=== PATIENT | male | born 1950 | race Caucasian/White ===

== ENCOUNTER 2016-10-21 09:38 | Emergency (ER) | payer OTHER ==
[~2016-10-21 09:38] MED LIST: ASPI81TA2 PO; GLU500 PO; [UNRECOGNIZED DRUG - REMARK]
--- NOTE | 2016-10-21 09:44 | ED.REPORT ---
HPI-General Illness Date of Service Oct 21, 2016 ED Provider: The patient is a 66 year old male with history of diabetes mellitus, hypertension, hyperlipidemia, neuropathy, and chronic pain, who was brought to the emergency department by EMS from [facility]. The patient has bee more forgetful and weaker than normal. The patient complains of difficulty breathing and increased fatigue. His breathing has improved over the last few hours. He continually states that his breathing issues may be related to a denture cream he has been using. He denies dysuria, hematuria, urinary frequency/urgency changes, abdominal pain, chest pain, bloody/tarry stools or rash. The history is somewhat difficult to obtain. Nursing Notes Stated Complaint: WEAKNESS Nursing Notes Reviewed: Yes Allergies: Coded Allergies: No Known Allergies (Verified Allergy, Unknown, 10/21/16) Scheduled Metformin-Expunged Drug, Do Not Renew! (Metformin-Expunged Drug, Do Not Renew!) 500 Mg Tablet 500 MG PO BID TAKE WITH EVENING MEAL Miscellaneous Medications (["Many Meds"]) Aspirin-Expunged Drug, Do Not Renew! (Aspirin-Expunged Drug, Do Not Renew!) 81 Mg Tab 81 MG PO General Time Seen by MD: 09:44 Chief Complaint Weakness Hx Obtained From: Patient (limited), EMS Arrived By: Ambulance Sudden in Onset?: No Onset Occurred: Onset unknown Symptom Duration: Duration unknown Severity: Current: No pain currently Severity: Maximum: No pain Recent Healthcare: No recent hospitalization Similar Sx Previous: No Past Medical History Past Medical History 1. Lumbar spine problems. 2. Carpal tunnel problems. 3. Diabetes. 4. Obesity. 5. Hypertension. 6. Hyperlipidemia. 7. Neuropathy. 8. Chronic back pain. 9. Hx of osteomyelitis Past Surgical History 1. Lumbar spine surgery. 2. Carpal tunnel surgery. 3. LLE amputation Smoking History Unknown if Ever Smoker Social History Lives at [facility] Other Social History: Local resident Review of Systems Full Review of Systems Constitutional: Reports: Fatigue, Weakness - generalized Respiratory: Reports: Shortness of breath GI: Denies: Abdominal pain, Bloody/tarry stool, Melena, Nausea Male: Denies Dysuria, Denies Hematuria, Denies Urinary frequency, Denies Urinary urgency, Denies Urination decreased, Denies Urination increased Skin: Denies Rash Neurologic: Reports: Confusion, Weakness Complete sys rev & neg: except as marked. Physical Exam Vital Signs Vital Signs Date Time Temp Pulse Resp B/P Pulse Ox O2 Delivery O2 Flow Rate FiO2 10/21/16 11:44 16 146/67 98 10/21/16 09:52 36.8 63 20 133/78 98 Room Air Initial VS: Reviewed Head / Eyes: Atraumatic, Normocephalic, PERRL Neck: Supple, Non-tender, Full range of motion Abdomen / GI: Soft, Non-tender, No guarding, No rebound, No distention Extremities: Vascular intact, Neuro intact, No swelling, No tenderness Skin: Warm, Dry, No cyanosis Psychiatric: Mood/affect normal, Behavior normal, Normal thought content General/Constitutional: Awake, Alert, No acute distress, Cooperative ENT: Airway patent Mouth: Positive: Mucous membranes dry Absent dentition Respiratory / Chest: Atraumatic, Breath sounds NL, Breath sounds = bilat, No respiratory distress, No rales, No rhonchi, No wheezing, No retractions, No stridor, No chest tenderness, No chest wall deformity Cardiovascular: Heart rate NL, Regular rhythm, Heart sounds NL, No gallop, No murmurs, No rubs, Cap refill not delayed, Peripheral circulation NL 1+ DP pulses Neurologic: Oriented X3, Speech NL, No motor deficits, No sensory deficits, CN II - XII intact, Cerebellar NL, Memory NL Interpretation & Diagnostics Lab Results Interpretation Result Diagram: 10/21/16 1023 10/21/16 1023 Test 10/21/16 10:23 10/21/16 10:55 White Blood Count 8.1th/mm3 (3.8-10.1) Red Blood Count 4.73mil/mm3 (4.40-5.80) Hemoglobin 14.1g/dL (13.8-17.2) Hematocrit 41.1% (41.0-50.0) Mean Corpuscular Volume 86.9fL (81-100) Mean Corpuscular Hemoglobin 29.8pg (27.0-35.0) Mean Corpuscular Hemoglobin Concent 34.3% (32.0-37.0) Red Cell Distribution Width 12.6% (12.3-15.4) Platelet Count 170bil/L (150-400) Neutrophils (%) (Auto) 68.6% (40-74) Lymphocytes (%) (Auto) 21.5% (14-46) Monocytes (%) (Auto) 6.6% (4-12) Eosinophils (%) (Auto) 3.0% (0-5) Basophils (%) (Auto) 0.2% (0-3) Sodium Level 133mEq/L (134-144) Potassium Level 4.7mEq/L (3.5-5.2) Chloride Level 93mEq/L (97-108) Carbon Dioxide Level 29mmol/L (18-29) Blood Urea Nitrogen 15mg/dL (8-27) Creatinine 0.90mg/dL (0.76-1.27) Estimat Glomerular Filtration Rate 90mL/min (>59) Glucose Level 273mg/dL (60-99) Lactic Acid Level 1.1mmol/L (0.4-2.0) Calcium Level 8.7mg/dL (8.5-10.1) Magnesium Level 1.7mg/dL (1.6-2.6) Total Bilirubin 0.7mg/dL (0.0-1.2) Aspartate Amino Transf (AST/SGOT) 15U/L (0-50) Alanine Aminotransferase (ALT/SGPT) 13U/L (0-44) Alkaline Phosphatase 71U/L (25-160) Troponin T 0.010ug/L (0.0-0.011) Pro-B-Type Natriuretic Peptide 149.9pg/mL (0-376) Total Protein 7.0g/dL (6.4-8.4) Albumin 3.9g/dL (3.4-5.0) Urine Color Yellow (YELLOW) Urine Appearance Hazy (CLEAR,HAZY) Urine pH 7.0 (5.0-8.0) Urine Specific [place] 1.015 (1.003-1.035) Urine Protein Negativemg/dL (NEG,TRACE) Urine Glucose (UA) 1000mg/dL (NEGATIVE) Urine Ketones Negativemg/dL (NEGATIVE) Urine Occult Blood Negative (NEGATIVE) Urine Nitrite Negative (NEGATIVE) Urine Bilirubin Negative (NEGATIVE) Urine Urobilinogen 0.2mg/dL (NORMAL) Urine Leukocyte Esterase Negative (NEGATIVE) Urine RBC 0-2/hpf (0-2) Urine WBC 0-5/hpf (0-5) Urine Epithelial Cells Occ/hpf (NONE-MOD) Urine Crystals None seen (NONE SEEN) Urine Bacteria Few/hpf (NONE-FEW) Urine Hyaline Casts None/lpf (NONE) Urine Granular Casts None seen (NONE SEEN) Urine Waxy Casts None seen (NONE SEEN) Urine Red Blood Cell Casts None seen (NONE SEEN) Urine White Blood Cell Casts None seen (NONE SEEN) Urine Mucus None seen (None Seen) Urine Trichomonas None seen (NONE SEEN) Urine Yeast None (NONE SEEN) Urinalysis Comment None Urine Culture Reflexed Not indicated ECG Interpretation ECG Interpretation: Sinus rhythm No acute ischemic changes Time: 11:20 Interpreted by: ED physician X-Ray Chest Interpretation Chest Xray Interpretation: IMPRESSION: Normal for age, except for reduced inspiratory volume Dictated by: Greg Pringle M.D. on 10/21/2016 at 11:19 Interpretation / Wet Read by: Interpret - Radiologist Re-Eval/Medical Decision Med Decision/Clinical Course Overall patient presents with this vague sense of not remembering to bring knees. This is of unclear etiology, it does not fit a clinical picture of pulmonary embolism, there is no unilateral leg swelling no vital sign instability, secondary laboratory signs like elevated troponin or proBNP. While this is not fully excluded pulmonary embolism, his symptoms do not seem to represent that. Additionally no brain imaging is obtained as he has a normal basic neuro exam and no focal signs or symptoms that would point to intracranial pathology. There is no obvious source of infection. Patient has returned to a more normal baseline, according to him. IT seems reasonable to send this patient back to the monitored care setting from which he came. Return and follow-up precautions are given. Source of Hx: Old records, EMS Time of Eval: 11:30 Re-Evaluation/Progress Note: Rechecked the patient. He is feeling better and would like to go home. All questions were addressed. Counseled Regarding: Diagnosis, Lab results, Need for follow-up, When/why to return to ED Discharge & Departure Primary Impression: Dyspnea Dyspnea type: unspecified Qualified Code: R06.00 - Dyspnea, unspecified Disposition: Home Discharge Condition All VS Reviewed: Yes Condition: Stable Additional Instructions: Thank you for seeking care at the emergency department. There is no obvious life threatening cause for your symptoms can be found today. Followup with your regular doctor in a few days for re-evaluation. Return to the emergency department for any new or concerning symptoms. Referrals: Amrik Greenfield MD (PCP) Scribe Attestation Portions of this note were transcribed by Soraya Colmenares. I, Dr. Palm personally performed the history, physical exam and medical decision-making; I reviewed and confirmed the accuracy of the information in the transcribed note. Signed by: Minnie Garces, 10/21/2016 and 1140. copies to: Amrik Greenfield MD, Timothy S DO Oct 21, 2016 09:44 Soraya Colmenares Oct 21, 2016 09:52
[2016-10-21] MEDS ORDERED: 0.9% Sodium Chloride 1,000 ML IV ONE (09:51)
[2016-10-21 09:52] VITALS: BP 133/78; PULSE 63; RESP 20; O2SAT 98
[2016-10-21 10:33] LABS: BASOPHILS % (AUTO) 0.2 % (0-3); MONOCYTES % (AUTO) 6.6 % (4-12); Mean Corpuscular Hemoglobin 29.8 pg (27.0-35.0); Mean Corpuscular Volume 86.9 fL (81-100); NEUTROPHILS % (AUTO) 68.6 % (40-74); Platelet Count 170 bil/L (150-400)
[2016-10-21 10:55] LABS: TROPONIN T 0.01 ug/L (0.0-0.011)
[2016-10-21 11:06] LABS: Magnesium 1.7 mg/dL (1.6-2.6)
[2016-10-21 11:13] LABS: APPEARANCE,URINE HAZY (CLEAR,HAZY); COLOR,URINE YELLOW (YELLOW); OCCULT BLOOD,URINE NEGATIVE (NEGATIVE); UROBILINOGEN,URINE 0.2 mg/dL (NORMAL)
--- NOTE | 2016-10-21 11:21 | DRSVH ---
PROCEDURE: X-RAY CHEST ONE VIEW, PORTABLE ([id number]) INDICATIONS: dyspnea TECHNIQUE: One view of the chest was acquired. COMPARISON: [facility], , CHEST 1VW (PORTABLE), 07/05/2011, 18:17. FINDINGS: Surgical changes and devices: None. Lungs and pleura: No pleural effusions or pneumothorax. Lungs are clear considering reduced inspira tory volume. Mediastinum: Mediastinal contours appear normal. Heart size is normal. Bones and chest wall: No suspicious bony lesions. Overlying soft tissues appear unremarkable. IMPRESSION: Normal for age, except for reduced inspiratory volume Dictated by: Greg Pringle M.D. on 10/21/2016 at 11:19 Approved by: Greg Pringle M.D. on 10/21/2016 at 11:19
[2016-10-21 11:44] VITALS: BP 146/67; RESP 16; O2SAT 98
== END 2016-10-21 12:45 | disposition home or self-care (01) ==
LOC: EDBD 09:38 → SED 09:38
DX: R06.00 Dyspnea, unspecified (principal); R53.1 Weakness; R53.83 Other fatigue; I10 Essential (primary) hypertension; E11.40 Type 2 diabetes mellitus with diabetic neuropathy, unspecified; E78.5 Hyperlipidemia, unspecified
CPT/HCPCS: 36415; 71010; 80053; 81000; 83605; 83735; 83880; 84484; 85025; 87040; 93005; 96360; 99285; J7030

== ENCOUNTER 2017-01-02 12:56 | Emergency (ER) | payer OTHER ==
[~2017-01-02] VITALS: Ht 177.8 cm; Wt 114.1 kg
--- NOTE | 2017-01-02 13:01 | ED.REPORT ---
HPI-General Illness Date of Service Jan 02, 2017 ED Provider: The patient is a 66 year old male with history of osteomyelitis, chronic back pain, diabetes mellitus, neuropathy, hypertension, and hyperlipidemia, who presents to the emergency department by EMS complaining of left upper arm pain that has been ongoing over the last 2 weeks. He presents to the emergency department today because within the last few days his pain has drastically worsened. His pain is exacerbated with movement or range of motion of his left shoulder. His pain is not worse with neck movement or deep breaths. His chronic pain medication has not helped with his pain. He denies any known injury or trauma. He denies chest pain, shortness of breath, cough or lower extremity swelling. He is currently living at [facility]. Nursing Notes Stated Complaint: LEFT ARM PAIN Nursing Notes Reviewed: Yes Allergies: Coded Allergies: No Known Allergies (Verified Allergy, Unknown, 10/21/16) Scheduled Metformin-Expunged Drug, Do Not Renew! (Metformin-Expunged Drug, Do Not Renew!) 500 Mg Tablet 500 MG PO BID TAKE WITH EVENING MEAL Miscellaneous Medications (["Many Meds"]) Aspirin-Expunged Drug, Do Not Renew! (Aspirin-Expunged Drug, Do Not Renew!) 81 Mg Tab 81 MG PO General Time Seen by MD: 13:00 Chief Complaint Other (left upper extremity pain) Hx Obtained From: Patient, EMS Arrived By: Ambulance Sudden in Onset?: No Onset Occurred: More than a week ago... (2 weeks) Symptom Duration: Since onset Location: : Arm left Quality: Painful Severity: Current: Moderate Severity: Maximum: Severe Recent Healthcare: Recent doctor visit Similar Sx Previous: Yes Past Medical History Past Medical History 1. Lumbar spine problems. 2. Carpal tunnel problems. 3. Diabetes. 4. Obesity. 5. Hypertension. 6. Hyperlipidemia. 7. Neuropathy. 8. Chronic back pain. 9. Hx of osteomyelitis in toes, resolved after bilateral midfoot amputations 10. Depression and anxiety 11. BPH 12. Restless leg syndrome 13. Constipation 14. Insomnia Past Surgical History 1. Lumbar spine surgery. 2. Carpal tunnel surgery. 3. Bilateral midfoot amputations for osteomyelitis Family History Noncontributory Smoking History Unknown if Ever Smoker Social History Lives at [facility] Other Social History: Local resident Ambulatory Status Independent Review of Systems Full Review of Systems Respiratory: Denies: Non-productive cough, Shortness of breath Cardiovascular: Denies: Chest pain Musculoskeletal: Reports: Extremity pain, Denies: Extremity swelling Complete sys rev & neg: except as marked. Physical Exam Vital Signs Vital Signs Date Time Temp Pulse Resp B/P Pulse Ox O2 Delivery O2 Flow Rate FiO2 01/02/17 15:43 37.2 87 19 116/63 97 Room Air 01/02/17 13:07 37.2 87 19 116/63 97 Room Air Initial VS: Reviewed Head / Eyes: Atraumatic, Normocephalic, PERRL ENT: Mucous membranes moist, Conjunctiva normal, No scleral icterus Skin: Warm, Dry, No cyanosis Neurologic: Alert, Oriented, Nonfocal Psychiatric: Mood/affect normal, Behavior normal, Normal thought content General/Constitutional: Awake, Alert, No acute distress, Cooperative Neck: Atraumatic, Supple, No swelling, Non-tender, No midline vertebral tend Respiratory / Chest: Atraumatic, Breath sounds NL, Breath sounds = bilat, No respiratory distress, No rales, No rhonchi, No wheezing Cardiovascular: Heart rate NL, Regular rhythm, Heart sounds NL, No gallop, No murmurs, No rubs, Cap refill not delayed, Peripheral circulation NL Abdomen: Atraumatic, Soft, Non-tender, No guarding, No rebound, BS normoactive , No distention Upper Extremities Upper Extremity / MS: Neurologic intact, Vascular intact There is no warmth, redness, rashes or swelling to his left shoulder. His collar bone and AC joint are normal. His left hand, forearm, and elbow are atraumatic and nontender. He has increased pain of his left shoulder with active and passive range of motion including: internal rotation, external rotation, and abduction. Wrist / Hand: Neurologic intact, Vascular intact Bilateral midfoot amputations Interpretation & Diagnostics ECG Interpretation ECG Interpretation: Sinus rhythm with a rate of 88 Nonspecific IVCD Low voltage No ischemia Similar to previous EKG taken on 10/21/2016 Time: 13:40 Interpreted by: ED physician X-Ray Interpretation Xray Interpretation: IMPRESSION: Mild arthritic change at the a.c. joint, no acute trauma found. Dictated by: Greg Pringle M.D. on 01/02/2017 at 14:43 X-Ray Ordered: Shoulder left Interpretation / Wet Read by: Interpret - Radiologist Procedures Intra-Articular Injection 40 mg Kenalog and 1.5 cc lidocaine Anterior approach into the left shoulder with no resistance Sterile touch technique Time: 14:25 Injection Performed by: ED physician Indication: Painful joint Consent / Setup / Site Prep: Consent from patient, Time-out performed, Hand hygiene observed Skin Preparation Agent: Hibiclens - Chlorhexidine Joint Injected: Shoulder left Post-Procedure / Complications: Antibiotic oint applied, Dressing placed, No complications, Condition improved, Tolerated procedure well, Patient stable Re-Eval/Medical Decision Source of Hx: Old records, EMS Time of Eval: 13:54 Re-Evaluation/Progress Note: Rechecked the patient. Discussed plan for steroid injection. Time of Eval: 14:26 Re-Evaluation/Progress Note: Completed steroid injection. Time of Eval: 15:07 Re-Evaluation/Progress Note: Rechecked the patient. He reports minimal improvement. Discussed plan for discharge. Counseled Regarding: Diagnosis, Need for follow-up, When/why to return to ED Discharge & Departure Primary Impression: Bursitis of left shoulder Ruled Out: Joint infection, Shoulder dislocation, Humeral fracture Disposition: Home Discharge Condition All VS Reviewed: Yes Condition: Stable Patient Instructions: Shoulder Bursitis (ED) Additional Instructions: Thank you for entrusting us with your care today. Your x-ray today is reassuring. There is no sign of any fractures, dislocation or joint infection. We gave you a steroid injection in the emergency department today that should help with your pain. Continue using your chronic pain medications as prescribed. You should wear the sling when you are up and around during the day. This will also help with your pain. You should [facility] next [facility] to further manage your pain. You may benefit from seeing an orthopedic surgeon. Please return to the emergency department if you develop increased pain, numbness, weakness, or any other new or concerning symptoms. Referrals: Amrik Greenfield MD (PCP) Scribe Attestation Portions of this note were transcribed by Soraya Colmenares. I, Dr. Singh personally performed the history, physical exam and medical decision-making; I reviewed and confirmed the accuracy of the information in the transcribed note. Signed by: Minnie Garces, 01/02/17 at 1508. copies to: Amrik Greenfield MD, Shawna L MD Jan 02, 2017 13:01 Soraya Colmenares Jan 02, 2017 13:07
[2017-01-02 13:07] VITALS: BP 116/63; PULSE 87; RESP 19; O2SAT 97
[2017-01-02] MEDS ORDERED: Triamcinolone Acet 40 mg/mL 5 mL Inj INTRARTICU ONE (14:05)
[2017-01-02] MEDS ORDERED: Triamcinolone Acet 40 mg/mL 1 mL Inj ARTICULAR ONE (14:10)
--- NOTE | 2017-01-02 14:45 | DRSVH ---
PROCEDURE: X-RAY LEFT SHOULDER, MINIMUM TWO VIEWS ([id number]) INDICATIONS: pain TECHNIQUE: 2 views of the shoulder were acquired. COMPARISON: [facility], CR, XR CHEST 1VW (PORTABLE), 10/21/2016, 9:51. FINDINGS: Bones: No fractures or dislocations. No suspicious bony lesions. Visualized ribs appear intact. Soft tissues: No suspicious soft tissue calcifications. IMPRESSION: Mild arthritic change at the a.c. joint, no acute trauma found. Dictated by: Greg Pringle M.D. on 01/02/2017 at 14:43 Approved by: Greg Pringle M.D. on 01/02/2017 at 14:43
[2017-01-02 15:43] VITALS: BP 116/63; PULSE 87; RESP 19; O2SAT 97
== END 2017-01-02 15:45 | disposition home or self-care (01) ==
LOC: EDBD 12:56 → SED 12:56 → EDUNIT# 12:56 → SED 15:45
DX: M75.52 Bursitis of left shoulder (principal); E11.40 Type 2 diabetes mellitus with diabetic neuropathy, unspecified; I10 Essential (primary) hypertension; E78.5 Hyperlipidemia, unspecified; M86.9 Osteomyelitis, unspecified; Z79.84 Long term (current) use of oral hypoglycemic drugs
CPT/HCPCS: 73030; 93005; 96374; 99284; J3301

== ENCOUNTER 2017-01-04 17:28 | Emergency (ER) | payer OTHER ==
[~2017-01-04] VITALS: Ht 179.1 cm; Wt 113.6 kg
[2017-01-04 17:30] VITALS: BP 198/112; PULSE 85; RESP 26; O2SAT 90; O2SAT 93
--- NOTE | 2017-01-04 18:09 | ED.REPORT ---
HPI-General Illness Date of Service Jan 04, 2017 ED Provider: Dr. Walker 66 y/o male with a history of diabetes mellitus, hypertension, and hyperlipidemia presents to the ED via EMS due to generalized weakness and malaise onset today. Patient was found to be hyperglycemic by EMS. Patient reportedly has a decreased appetite and not behaving like himself. He also complains of left elbow pain without swelling or erythema, onset 3-4 days ago. He was told that his pain was due to bursitis and he denies any recent trauma or injury. Pt rates the pain 6/10 in severity. Associated sx include increased urinary frequency and increased thirst but denies fever, chills, cough, shortness of breath, abdominal pain, or chest pain. Nursing Notes Stated Complaint: HYPERGLYCEMIA Chief Complaint: General Complaint Nursing Notes Reviewed: Yes Allergies: Coded Allergies: No Known Allergies (Verified Allergy, Unknown, 10/21/16) Scheduled Metformin-Expunged Drug, Do Not Renew! (Metformin-Expunged Drug, Do Not Renew!) 500 Mg Tablet 500 MG PO BID TAKE WITH EVENING MEAL Miscellaneous Medications (["Many Meds"]) Aspirin-Expunged Drug, Do Not Renew! (Aspirin-Expunged Drug, Do Not Renew!) 81 Mg Tab 81 MG PO General Time Seen by MD: 18:08 Chief Complaint Weakness Hx Obtained From: Patient Arrived By: Ambulance Onset Occurred: 4 days ago Symptom Duration: Constant Location: : Elbow left Quality: Painful Severity: Current: Pain level 6 out of 10 Severity: Maximum: Pain level 10 out of 10 Recent Healthcare: Recent doctor visit Similar Sx Previous: No Past Medical History Past Medical History 1. Lumbar spine problems. 2. Carpal tunnel problems. 3. Diabetes. 4. Obesity. 5. Hypertension. 6. Hyperlipidemia. 7. Neuropathy. 8. Chronic back pain. 9. Hx of osteomyelitis in toes, resolved after bilateral midfoot amputations 10. Depression and anxiety 11. BPH 12. Restless leg syndrome 13. Constipation 14. Insomnia Past Surgical History 1. Lumbar spine surgery. 2. Carpal tunnel surgery. 3. Bilateral midfoot amputations for osteomyelitis Family History Noncontributory Smoking History Unknown if Ever Smoker Social History Lives at [facility] Other Social History: Local resident Ambulatory Status Independent Review of Systems Full Review of Systems Constitutional: Reports: Malaise, Weakness - generalized, Denies: Chills, Fever Respiratory: Denies: Non-productive cough Cardiovascular: Denies: Chest pain GI: Denies: Abdominal pain Male: Reports Urinary frequency (increased ) Musculoskeletal: Reports: Joint pain (Left elbow pain ), Denies: Joint swelling Complete sys rev & neg: except as marked. Physical Exam Vital Signs Vital Signs Date Time Temp Pulse Resp B/P Pulse Ox O2 Delivery O2 Flow Rate FiO2 01/04/17 22:32 102 19 145/74 95 Room Air 01/04/17 21:26 98 18 151/68 96 Room Air 01/04/17 18:32 84 16 142/68 100 01/04/17 17:30 36.9 85 26 198/112 90 Room Air Initial VS: Reviewed, Vital signs abnormal Head / Eyes: Atraumatic, Normocephalic, PERRL Neck: Supple, Full range of motion Respiratory: Breath sounds normal, Clear to auscultation, No respiratory distress Abdomen / GI: Soft, Non-tender Skin: Warm, Dry, No cyanosis Neurologic: Alert, Oriented, Nonfocal Psychiatric: Mood/affect normal, Behavior normal, Normal thought content General/Constitutional: Awake, Alert, No acute distress, Cooperative ENT: Airway patent Mouth: Positive: Mucous membranes dry (dry lips) Cardiovascular: Heart rate NL, Regular rhythm, Heart sounds NL Upper Extremities Upper Extremity / MS: No swelling, No erythema, No deformity, No edema Left Elbow: Positive: Tenderness present... (tender proximal left lateral forearm), Negative: Deformity present, Ecchymosis present, Erythema present, Swelling present..., Warmth present Lower Extremity / Pelvis / MS: Atraumatic, No swelling, No edema Toes absent bilaterally Interpretation & Diagnostics Lab Results Interpretation Result Diagram: 01/04/17 1744 01/04/17 1744 Test 01/04/17 17:44 01/04/17 19:48 White Blood Count 10.3th/mm3 (3.8-10.1) Red Blood Count 4.17mil/mm3 (4.40-5.80) Hemoglobin 12.2g/dL (13.8-17.2) Hematocrit 36.4% (41.0-50.0) Mean Corpuscular Volume 87.3fL (81-100) Mean Corpuscular Hemoglobin 29.3pg (27.0-35.0) Mean Corpuscular Hemoglobin Concent 33.5% (32.0-37.0) Red Cell Distribution Width 12.6% (12.3-15.4) Platelet Count 252bil/L (150-400) Neutrophils (%) (Auto) 81.6% (40-74) Lymphocytes (%) (Auto) 7.8% (14-46) Monocytes (%) (Auto) 10.1% (4-12) Eosinophils (%) (Auto) 0.1% (0-5) Basophils (%) (Auto) 0.1% (0-3) Sodium Level 127mEq/L (134-144) Potassium Level 4.5mEq/L (3.5-5.2) Chloride Level 86mEq/L (97-108) Carbon Dioxide Level 25mmol/L (18-29) Blood Urea Nitrogen 30mg/dL (8-27) Creatinine 1.16mg/dL (0.76-1.27) Estimat Glomerular Filtration Rate 67mL/min (>59) Glucose Level 348mg/dL (60-99) Calcium Level 9.8mg/dL (8.5-10.1) Magnesium Level 1.9mg/dL (1.6-2.6) Total Bilirubin 0.9mg/dL (0.0-1.2) Aspartate Amino Transf (AST/SGOT) 14U/L (0-50) Alanine Aminotransferase (ALT/SGPT) 9U/L (0-44) Alkaline Phosphatase 70U/L (25-160) Pro-B-Type Natriuretic Peptide 372.3pg/mL (0-376) Total Protein 8.2g/dL (6.4-8.4) Albumin 3.8g/dL (3.4-5.0) Lactic Acid Level 1.3mmol/L (0.4-2.0) Troponin T 0.016ug/L (0.0-0.011) ECG Interpretation ECG Interpretation: Sinus rhythm normal. Rate 89 Nonspecific intraventricular conduction delay. Time: 19:16 Interpreted by: ED physician X-Ray Chest Interpretation Chest Xray Interpretation: IMPRESSION: 1. Mild pulmonary edema with probable atelectasis in the lung bases. Dictated by: Alberto Arguelles M.D. on 01/04/2017 at 18:45 Approved by: Alberto Arguelles M.D. on 01/04/2017 at 18:46 View: Portable, 1 view X-Ray Interpretation Xray Interpretation: IMPRESSION: 1. No fracture or dislocation. Dictated by: Alberto Arguelles M.D. on 01/04/2017 at 19:37 Approved by: Alberto Arguelles M.D. on 01/04/2017 at 19:41 X-Ray Ordered: Elbow left Interpretation / Wet Read by: Interpret - Radiologist Re-Eval/Medical Decision Med Decision/Clinical Course The patient was sent in for hyperglycemia for which she was treated. He also has general malaise, no source of infection was found. Facet complains of pain to his left elbow, it is really his proximal forearm no sign of infection was seen. Additional differential diagnoses considered were acute coronary syndrome , pneumonia, urinary tract infection, and electrode abnormality. He was found to have hyponatremia which may have caused some of his symptoms. The patient was feeling improved at discharge. His corrected sodium was 131. Source of Hx: Old records, EMS Time of Eval: 22:20 Patient Status: Condition improved Re-Evaluation/Progress Note: Pt rechecked. Discussed lab and imaging results and diagnosis. Informed the pt of the plan to discharge. Pt understands and agrees with plan. F/U instructions and RTER warning given. All questions addressed. Counseled Regarding: Diagnosis, Lab results, Need for follow-up, When/why to return to ED Discharge & Departure Primary Impression: Hyperglycemia Additional Impressions: Hyponatremia Malaise Left forearm pain Disposition: Home Discharge Condition All VS Reviewed: Yes Condition: Stable Patient Instructions: Hyponatremia (ED) Additional Instructions: Check your blood sugar before bed this evening. There is no bony injury or infection in your left arm. You need to see your doctor for further evaluation, unless your pain resolves. Seek care for swelling or redness. You need to have your sodium level checked later this week, it was low and needs to be rechecked. Referrals: Amrik Greenfield MD (PCP) Scribe Attestation Portions of this note were transcribed by Zackary Talbot and Brianna Silva I, personally performed the history, physical exam and medical decision-making;I reviewed and confirmed the accuracy of the information in the transcribed note. Signed by Zackary Talbot and Brianna Silva [facility]. 01/04/17 2332 copies to: Amrik Greenfield MD, Jena M MD Jan 04, 2017 18:09 Zackary Talbot Jan 04, 2017 18:20 Brianna Silva Jan 04, 2017 22:08
[2017-01-04 18:14] LABS: TROPONIN T 0.024 ug/L (0.0-0.011)
[2017-01-04] MEDS ORDERED: 0.9% Sodium Chloride 1,000 ML IV ONE (18:20)
[2017-01-04 18:25] LABS: Magnesium 1.9 mg/dL (1.6-2.6)
[2017-01-04 18:32] VITALS: BP 142/68; PULSE 84; RESP 16; O2SAT 100
--- NOTE | 2017-01-04 18:48 | DRSVH ---
PROCEDURE: X-RAY CHEST ONE VIEW, PORTABLE ([id number]) INDICATIONS: SOB TECHNIQUE: One view of the chest was acquired. COMPARISON: [facility], CR, XR CHEST 1VW (PORTABLE), 10/21/2016, 9:51. FINDINGS: Surgical changes and devices: None. Lungs and pleura: No pleural effusions or pneumothorax. There are low lung volumes with pulmonary v ascular prominence compatible with mild pulmonary edema. There are linear bibasilar opacities repres enting atelectasis. Mediastinum: Mediastinal contours appear unchanged. Heart size is within normal limits given techni que. Bones and chest wall: No suspicious bony lesions. Overlying soft tissues appear unremarkable. IMPRESSION: 1. Mild pulmonary edema with probable atelectasis in the lung bases. Dictated by: Alberto Arguelles M.D. on 01/04/2017 at 18:45 Approved by: Alberto Arguelles M.D. on 01/04/2017 at 18:46
[2017-01-04 19:16] LABS: BASOPHILS % (AUTO) 0.1 % (0-3); EOSINOPHILS % (AUTO) 0.1 % (0-5); MONOCYTES % (AUTO) 10.1 % (4-12); Mean Corpuscular Hemoglobin 29.3 pg (27.0-35.0); Mean Corpuscular Volume 87.3 fL (81-100); NEUTROPHILS % (AUTO) 81.6 % (40-74); Platelet Count 252 bil/L (150-400)
--- NOTE | 2017-01-04 19:42 | DRSVH ---
PROCEDURE: X-RAY LEFT ELBOW, TWO VIEWS ([id number]) INDICATIONS: proximal forearm pain TECHNIQUE: 3 views of the elbow were acquired. COMPARISON: None. FINDINGS: Bones: No fractures or dislocations. No suspicious bony lesions. Soft tissues: No elbow joint effusion. No suspicious soft tissue calcifications. IMPRESSION: 1. No fracture or dislocation. Dictated by: Alberto Arguelles M.D. on 01/04/2017 at 19:37 Approved by: Alberto Arguelles M.D. on 01/04/2017 at 19:41
[2017-01-04] MEDS ORDERED: 0.9% Sodium Chloride 500 ML IV ONE (20:35)
[2017-01-04] MEDS ORDERED: Insulin Human REGular-Omnicell 100 Unit/mL IV ONE (21:05)
[2017-01-04 21:26] VITALS: BP 151/68; PULSE 98; RESP 18; O2SAT 96
[2017-01-04] MEDS ORDERED: Insulin Human REGular-Omnicell 100 Unit/mL SUBQ ONE (22:30)
[2017-01-04 22:32] VITALS: BP 145/74; PULSE 102; RESP 19; O2SAT 95
[2017-01-05] MEDS ORDERED: CLOT45CR7 TOPICAL (18:57)
[2017-01-05] MEDS ORDERED: OMEP20CA11 PO (19:02)
[2017-01-05] MEDS ORDERED: PROP40TA5 PO (19:02)
[2017-01-05] MEDS ORDERED: FINA5TAB9 PO (19:02)
[2017-01-05] MEDS ORDERED: MS30TCR PO (19:02)
[2017-01-05] MEDS ORDERED: VENL75CA95 PO (19:02)
[2017-01-05] MEDS ORDERED: DORZ10DR20 RIGHT_EYE (19:02)
[2017-01-05] MEDS ORDERED: CHOL10008 PO (19:02)
[2017-01-05] MEDS ORDERED: GABA-502 PO ×2 (19:02→19:17)
[2017-01-05] MEDS ORDERED: DOXA4TAB2 PO (19:05)
[2017-01-05] MEDS ORDERED: PRAV20TA2 PO (19:05)
[2017-01-05] MEDS ORDERED: PRIM50TA PO (19:05)
[2017-01-05] MEDS ORDERED: SENN-133 PO (19:05)
[2017-01-05] MEDS ORDERED: ZOLP10TA5 PO (19:17)
[2017-01-05] MEDS ORDERED: LIDO30CR TP (19:17)
[2017-01-05] MEDS ORDERED: OXYC-474 PO (19:17)
[2017-01-05] MEDS ORDERED: DOCU250C2 PO (19:17)
[2017-01-05] MEDS ORDERED: METF500T4 PO (19:21)
[2017-01-05] MEDS ORDERED: IBUP-1827 PO (19:21)
== END 2017-01-04 23:14 | disposition home or self-care (01) ==
LOC: SED 17:28
DX: E11.65 Type 2 diabetes mellitus with hyperglycemia (principal); E87.1 Hypo-osmolality and hyponatremia; R53.81 Other malaise; M79.632 Pain in left forearm; E11.40 Type 2 diabetes mellitus with diabetic neuropathy, unspecified; E78.5 Hyperlipidemia, unspecified; I10 Essential (primary) hypertension; Z79.84 Long term (current) use of oral hypoglycemic drugs
CPT/HCPCS: 36415; 71010; 73070; 80053; 82948; 83605; 83735; 83880; 84484; 85025; 93005; 96361; 96374; 99285; J1815; J2270; J7030; J7040

== ENCOUNTER 2017-01-05 14:04 | Emergency (ER) | payer OTHER ==
[~2017-01-05] VITALS: Ht 177.8 cm; Wt 97.7 kg
[2017-01-05 14:15] VITALS: BP 144/86; PULSE 92; RESP 23; O2SAT 95
--- NOTE | 2017-01-05 14:17 | ED.REPORT ---
HPI-Chest Pain 40 and Over Date of Service Jan 05, 2017 ED Provider: Juancarlos Robbins MD 66 year old male with a history of diabetes, HTN, and hyperlipidemia presents to the ER complaining of several days of left upper extremity pain. Pain is exacerbated with movement of the affected extremity. Patient denies chest pain, shortness of breath, dizziness, nausea, vomiting, and any other symptoms at this time. He has been seen here in the emergency room several times in the past few days, most recently yesterday. At that time he presented complaining of generalized weakness and malaise, and was diagnosed with hyperglycemia. He reports that he has not taken insulin in years, and has been successful in controlling his diabetes through diet. Nursing Notes Stated Complaint: LEFT ARM PAIN Chief Complaint: General Complaint Nursing Notes Reviewed: Yes Allergies: Coded Allergies: No Known Allergies (Verified Allergy, Unknown, 10/21/16) Scheduled Metformin-Expunged Drug, Do Not Renew! (Metformin-Expunged Drug, Do Not Renew!) 500 Mg Tablet 500 MG PO BID TAKE WITH EVENING MEAL Miscellaneous Medications (["Many Meds"]) Aspirin-Expunged Drug, Do Not Renew! (Aspirin-Expunged Drug, Do Not Renew!) 81 Mg Tab 81 MG PO General Time Seen by MD: 14:17 Chief Complaint Other (Left Upper Extremity Pain) Hx Obtained From: Patient Arrived By: Walk-in Sudden in Onset?: No Onset Occurred: 4 days ago Symptom Duration: Since onset Location: : Shoulder left Quality: Painful Severity: Current: Moderate Severity: Maximum: Moderate Pertinent Negative: Pt denies other symptoms Context Related History: Reports: Diabetes mellitus Recent Healthcare: Recent doctor visit Similar Sx Previous: Yes Past Medical History Past Medical History 1. Lumbar spine problems. 2. Carpal tunnel problems. 3. Diabetes. 4. Obesity. 5. Hypertension. 6. Hyperlipidemia. 7. Neuropathy. 8. Chronic back pain. 9. Hx of osteomyelitis in toes, resolved after bilateral midfoot amputations 10. Depression and anxiety 11. BPH 12. Restless leg syndrome 13. Constipation 14. Insomnia Past Surgical History 1. Lumbar spine surgery. 2. Carpal tunnel surgery. 3. Bilateral midfoot amputations for osteomyelitis Family History Noncontributory Smoking History Unknown if Ever Smoker Social History Lives at [facility] Other Social History: Local resident Ambulatory Status Independent Review of Systems Constitutional: Denies: Chills, Fever Respiratory: Denies: Non-productive cough, Shortness of breath Cardiovascular: Denies: Chest pain GI: Denies: Diarrhea, Nausea, Vomiting Musculoskeletal: Reports: Extremity pain (Left Arm), Denies: Back pain, Joint pain, Lumbar pain, Neck pain, Thoracic pain Skin: Denies Diaphoresis Complete sys rev & neg: except as marked. Physical Exam Initial Vital Signs Vital Signs (First) Date Time Temp Pulse Resp B/P Pulse Ox O2 Delivery O2 Flow Rate FiO2 01/05/17 14:15 36.7 92 23 144/86 95 Room Air Initial VS: Reviewed Head / Eyes: Atraumatic, Normocephalic Neck: Supple, Non-tender, Full range of motion Skin: Warm, Dry, No cyanosis Neurologic: Alert, Oriented, Nonfocal General/Constitutional: Awake, Alert, Well developed, Well nourished Appearance / Presentation: Positive: Obese Respiratory / Chest: Breath sounds NL, Breath sounds = bilat, No respiratory distress, No rales, No rhonchi, No wheezing, No stridor, No chest tenderness Cardiovascular: Heart rate NL, Regular rhythm, Heart sounds NL, No murmurs, Peripheral circulation NL, Pulses = bilaterally, No gross BP differential Abdomen: Soft, Non-tender, No guarding, No rebound, No distention Upper Extremity / MS: Full range of motion, Neurologic intact, Vascular intact Left forearm tenderness. Interpretation & Diagnostics Lab Results Interpretation Result Diagram: 01/05/17 1422 01/05/17 1422 Test 01/05/17 14:22 White Blood Count 10.1th/mm3 (3.8-10.1) Red Blood Count 3.90mil/mm3 (4.40-5.80) Hemoglobin 11.3g/dL (13.8-17.2) Hematocrit 34.2% (41.0-50.0) Mean Corpuscular Volume 87.7fL (81-100) Mean Corpuscular Hemoglobin 29.0pg (27.0-35.0) Mean Corpuscular Hemoglobin Concent 33.0% (32.0-37.0) Red Cell Distribution Width 12.4% (12.3-15.4) Platelet Count 261bil/L (150-400) Neutrophils (%) (Auto) 81.4% (40-74) Lymphocytes (%) (Auto) 8.6% (14-46) Monocytes (%) (Auto) 9.5% (4-12) Eosinophils (%) (Auto) 0.1% (0-5) Basophils (%) (Auto) 0% (0-3) Sodium Level 129mEq/L (134-144) Potassium Level 4.5mEq/L (3.5-5.2) Chloride Level 91mEq/L (97-108) Carbon Dioxide Level 19mmol/L (18-29) Blood Urea Nitrogen 25mg/dL (8-27) Creatinine 0.93mg/dL (0.76-1.27) Estimat Glomerular Filtration Rate 86mL/min (>59) Glucose Level 349mg/dL (60-99) Osmolality 297 (275-300) Calcium Level 8.9mg/dL (8.5-10.1) Magnesium Level 1.6mg/dL (1.6-2.6) Total Bilirubin 0.7mg/dL (0.0-1.2) Aspartate Amino Transf (AST/SGOT) 16U/L (0-50) Alanine Aminotransferase (ALT/SGPT) 8U/L (0-44) Alkaline Phosphatase 65U/L (25-160) Troponin T 0.016ug/L (0.0-0.011) Total Protein 7.3g/dL (6.4-8.4) Albumin 3.1g/dL (3.4-5.0) Hold Jack Top Tube Received (Received) Ketones Negative (Negative) ECG Interpretation ECG Interpretation: Sinus tachycardia, rate [address] T changes Time: 14:26 Interpreted by: ED physician Re-Eval/Medical Decision Med Decision/Clinical Course 66-year-old male history of diabetes presenting with left arm pain times several days. He has been seen for this twice. On arrival he was pale and diaphoretic. By the time I evaluated him this had resolved. EKG no signs ischemia. Labs pending at time of transfer of care to Dr. Elena. Source of Hx: Old records Discharge & Departure Shift Change Sign-Out Patient Care Transferred: Yes Discussed Complaint(s): Yes Primary Impression: Hyperglycemia Additional Impression: Left forearm pain Discharge Condition All VS Reviewed: Yes Condition: Stable Referrals: Amrik Greenfield MD (PCP) Care Transferred to: Dr. Elena Care Transferred at: 15:00 Minnie Attestation Portions of this note were transcribed by Can Haynes. I, Dr. Robbins, personally performed the history, physical exam and medical decision-making; I reviewed and confirmed the accuracy of the information in the transcribed note. Signed by: Minnie Fletcher, 01/05/2017 at 14:30 copies to: Amrik Greenfield MD, Ben M MD Jan 05, 2017 14:17 CAN HAYNES Jan 05, 2017 14:25
[2017-01-05 14:33] LABS: BASOPHILS % (AUTO) 0 % (0-3); EOSINOPHILS % (AUTO) 0.1 % (0-5); MONOCYTES % (AUTO) 9.5 % (4-12); Mean Corpuscular Volume 87.7 fL (81-100); NEUTROPHILS % (AUTO) 81.4 % (40-74); Platelet Count 261 bil/L (150-400)
--- NOTE | 2017-01-05 14:50 | DRSVH ---
PROCEDURE: X-RAY CHEST ONE VIEW, PORTABLE ([id number]) INDICATIONS: Chest pain TECHNIQUE: One view of the chest was acquired. COMPARISON: [facility], CR, XR CHEST 1VW (PORTABLE), 01/04/2017, 17:50. FINDINGS: Surgical changes and devices: None. Lungs and pleura: There are low lung volumes, likely related to shallow inspiration. Evaluation of t he lung bases is difficult given the suboptimal positioning of the x-ray tube. This does result in d ifficulty evaluating the lung bases bursal abnormalities. No definite pneumonia is evident. The pul monary vasculature is slightly increased. No pneumothorax is evident. Mediastinum: Mediastinal contours appear normal. Heart size is normal. Bones and chest wall: No suspicious bony lesions. Degenerative changes of the spine are noted. Over lying soft tissues appear unremarkable. IMPRESSION: 1. Low lung volumes likely is related to shallow inspiration. No obvious pneumonia. 2. Mild vascular congestion without overt failure. Dictated by: Matthew Ontiveros M.D. on 01/05/2017 at 13:47 Approved by: Matthew Ontiveros M.D. on 01/05/2017 at 13:48
[2017-01-05 15:06] LABS: Magnesium 1.6 mg/dL (1.6-2.6); TROPONIN T 0.016 ug/L (0.0-0.011)
[2017-01-05 16:00] VITALS: BP 144/73; PULSE 94; RESP 12; O2SAT 98
[2017-01-05] MEDS ORDERED: 0.9% Sodium Chloride 1,000 ML IV ONE (16:30)
[2017-01-05 17:20] LABS: APPEARANCE,URINE CLEAR (CLEAR,HAZY); COLOR,URINE YELLOW (YELLOW); OCCULT BLOOD,URINE LARGE (NEGATIVE); UROBILINOGEN,URINE 4 mg/dL (NORMAL)
[2017-01-05 18:30] VITALS: BP 136/61; PULSE 93; RESP 11; O2SAT 99
[2017-01-05] MEDS ORDERED: CLOT45CR7 TOPICAL (18:57)
[2017-01-05] MEDS ORDERED: PROP40TA5 PO (19:02)
[2017-01-05] MEDS ORDERED: FINA5TAB9 PO (19:02)
[2017-01-05] MEDS ORDERED: CHOL10008 PO (19:02)
[2017-01-05] MEDS ORDERED: DORZ10DR20 RIGHT_EYE (19:02)
[2017-01-05] MEDS ORDERED: OMEP20CA11 PO (19:02)
[2017-01-05] MEDS ORDERED: GABA-502 PO ×2 (19:02→19:17)
[2017-01-05] MEDS ORDERED: MS30TCR PO (19:02)
[2017-01-05] MEDS ORDERED: VENL75CA95 PO (19:02)
[2017-01-05] MEDS ORDERED: PRIM50TA PO (19:05)
[2017-01-05] MEDS ORDERED: PRAV20TA2 PO (19:05)
[2017-01-05] MEDS ORDERED: DOXA4TAB2 PO (19:05)
[2017-01-05] MEDS ORDERED: SENN-133 PO (19:05)
[2017-01-05] MEDS ORDERED: LIDO30CR TP (19:17)
[2017-01-05] MEDS ORDERED: OXYC-474 PO (19:17)
[2017-01-05] MEDS ORDERED: ZOLP10TA5 PO (19:17)
[2017-01-05] MEDS ORDERED: DOCU250C2 PO (19:17)
[2017-01-05] MEDS ORDERED: METF500T4 PO (19:21)
[2017-01-05] MEDS ORDERED: IBUP-1827 PO (19:21)
[2017-01-05 21:20] VITALS: BP 148/80; PULSE 84; RESP 16; O2SAT 98
== END 2017-01-05 21:21 | disposition home or self-care (01) ==
LOC: SED 14:04
DX: E11.65 Type 2 diabetes mellitus with hyperglycemia (principal); M79.632 Pain in left forearm; I10 Essential (primary) hypertension; E78.5 Hyperlipidemia, unspecified; Z79.84 Long term (current) use of oral hypoglycemic drugs; Z79.82 Long term (current) use of aspirin
CPT/HCPCS: 36415; 71010; 80053; 81000; 82009; 82550; 82948; 83735; 83930; 84484; 85025; 85651; 87086; 87088; 93005; 96361; 96374; 99285; J2270; J7030

== ENCOUNTER 2017-01-19 13:07 | Inpatient (IN) | payer MEDICARE, OTHER ==
[~2017-01-19] VITALS: Ht 177.8 cm; Wt 108.0 kg
[~2017-01-19 13:07] MED LIST changes: -ASPI81TA2 PO; +CHOL10008 PO; +CLOT45CR7 TOPICAL; +DOCU250C2 PO; +DORZ10DR20 RIGHT_EYE; +DOXA4TAB2 PO; +FINA5TAB9 PO; +GABA-502 PO; -GLU500 PO; +IBUP-1827 PO; +LIDO30CR TP; +METF500T4 PO; +MS30TCR PO; +OMEP20CA11 PO; +OXYC-474 PO; +PRAV20TA2 PO; +PRIM50TA PO; +PROP40TA5 PO; +SENN-133 PO; +VENL75CA95 PO; +ZOLP10TA5 PO; -[UNRECOGNIZED DRUG - REMARK]
[2017-01-19 13:09] VITALS: BP 112/67; PULSE 76; RESP 16; O2SAT 97
--- NOTE | 2017-01-19 14:54 | ED.REPORT ---
HPI-Extremity Problem Upper Date of Service January 19, 2017 ED Provider: Juancarlos Robbins MD The patient is a 66 year old male with history of osteomyelitis, chronic back pain, diabetes mellitus, neuropathy, hypertension, and hyperlipidemia, who presents to the emergency department complaining of left upper extremity pain that began a few weeks ago. The pain is located from his left mid forearm up to his shoulder. His pain is exacerbated with movement. He has not been taking anything for the pain but has been using a sling. He also mentions weakness of his left arm. He has been evaluated here and at the [facility] for the same. He has had multiple negative x-rays. He presents today because he is concerned that something is wrong. He denies fever, chills or rash. Nursing Notes Stated Complaint: LT ARM PAIN Chief Complaint: Extremity Trauma Nursing Notes Reviewed: Yes Allergies: Coded Allergies: No Known Allergies (Verified Allergy, Unknown, 01/19/17) Scheduled Cholecalciferol (Vitamin D3) (Vitamin D3) 1,000 Unit Tab.chew 2,000 UNIT PO QAM Clotrimazole 1% (Gyne-Lotrimin 7 1%) 45 Gm Cream.appl 1 APPLIC TOPICAL BID TO FEET Dorzolamide HCl/Timolol Maleat (Dorzolamide-Timolol Eye Drops) 10 Ml Drops 1 GTT RIGHT_EYE BID Doxazosin (Cardura) 4 Mg Tablet 4 MG PO HS Finasteride (Finasteride) 5 Mg Tablet 5 MG PO QAM Gabapentin (Gabapentin) 300 Mg Capsule 900 MG PO TID Metformin (Metformin) 500 Mg Tablet 500 MG PO BID Morphine Sulfate ER (MS Contin) 30 Mg Tablet.er 30 MG PO BID Omeprazole (Omeprazole) 20 Mg Capsule.dr 20 MG PO QAM Pravastatin (Pravastatin) 20 Mg Tablet 20 MG PO HS Primidone (Primidone) 50 Mg Tablet 100 MG PO HS Propranolol HCl (Propranolol HCl) 40 Mg Tablet 40 MG PO BID Sennosides (Senna) 8.6 Mg Tablet 17.2 MG PO HS Venlafaxine ER (Venlafaxine ER) 75 Mg Cap.er.24h 225 MG PO QAM Scheduled PRN Docusate Sodium (Docusate Sodium) 250 Mg Capsule 250 MG PO BID PRN PRN For Constipation Gabapentin (Gabapentin) 300 Mg Capsule 900 MG PO DAILY PRN PRN For Pain Ibuprofen (Ibuprofen) 600 Mg Tablet 600 MG PO TID PRN PRN For Pain Lidocaine (Rectasmoothe) 5 % Cream..g. 1 APPLIC TP TID PRN PRN For Pain Oxycodone (Roxicodone) 5 Mg Tablet 5 MG PO QID PRN PRN For Pain Zolpidem (Zolpidem) 10 Mg Tablet 10 MG PO HS PRN PRN For Insomnia General Time Seen by MD: 14:42 Chief Complaint Arm injury left Hx Obtained From: Patient Arrived By: Walk-in Onset Occurred: More than a week ago... Symptom Duration: Since onset Location: : Arm left Quality: Painful Severity: Current: Moderate Severity: Maximum: Severe Recent Healthcare: No recent hospitalization, Recent doctor visit Similar Sx Previous: Yes Past Medical History Past Medical History 1. Lumbar spine problems. 2. Carpal tunnel problems. 3. Diabetes. 4. Obesity. 5. Hypertension. 6. Hyperlipidemia. 7. Neuropathy. 8. Chronic back pain. 9. Hx of osteomyelitis in toes, resolved after bilateral midfoot amputations 10. Depression and anxiety 11. BPH 12. Restless leg syndrome 13. Constipation 14. Insomnia Past Surgical History 1. Lumbar spine surgery. 2. Carpal tunnel surgery. 3. Bilateral midfoot amputations for osteomyelitis Family History Noncontributory Smoking History Unknown if Ever Smoker Social History Lives at [facility] Other Social History: Local resident Ambulatory Status Independent Review of Systems Constitutional: Denies: Chills, Fever Musculoskeletal: Reports: Extremity pain Skin: Denies Rash Neurologic: Reports: Weakness Complete sys rev & neg: except as marked. Physical Exam Initial Vital Signs Vital Signs (First) Date Time Temp Pulse Resp B/P Pulse Ox O2 Delivery O2 Flow Rate FiO2 01/19/17 13:09 36.3 76 16 112/67 97 Room Air Initial VS: Reviewed Head / Eyes: Atraumatic, Normocephalic, PERRL ENT: Mucous membranes moist, Conjunctiva normal, No scleral icterus Neck: Supple, Non-tender, Full range of motion Respiratory: Breath sounds normal, Clear to auscultation, No respiratory distress Cardiovascular: Regular rate & rhythm, Heart sounds normal, Intact distal pulses Abdomen / GI: Soft, Non-tender, No guarding, No rebound, No distention Lymphatic: No lymphadenopathy Lower Extremities: Vascular intact, Neuro intact Skin: Warm, Dry, No cyanosis Neurologic: Alert, Oriented, Nonfocal Psychiatric: Mood/affect normal, Behavior normal, Normal thought content General/Constitutional: Awake, Alert, Well appearing Upper Extremity / MS: Neurologic intact, Vascular intact Diffuse medial left forearm tenderness. Diffuse swelling of his left upper extremity. Neurovascularly intact. Strength is 5/5. Interpretation & Diagnostics Left upper extremity duplex IMPRESSION: Venous thrombus present within the single brachial vein as well as the radial and ulnar veins within the upper arm of the forearm with clot extension in the brachial vein to the level of the axillary region. Dr. Gavin Ramirez given results by the wood crew supervisor at 1540 hrs. 2016. Dictated by: Tarun ARAIZA Interpreted: Nat Hidalgo MD on 01/19/2017 at 16: 51 Lab Results Interpretation Result Diagram: 01/19/17 1617 01/19/17 1617 Test 01/19/17 16:17 White Blood Count 7.5th/mm3 (3.8-10.1) Red Blood Count 3.59mil/mm3 (4.40-5.80) Hemoglobin 10.5g/dL (13.8-17.2) Hematocrit 31.8% (41.0-50.0) Mean Corpuscular Volume 88.6fL (81-100) Mean Corpuscular Hemoglobin 29.2pg (27.0-35.0) Mean Corpuscular Hemoglobin Concent 33.0% (32.0-37.0) Red Cell Distribution Width 12.3% (12.3-15.4) Platelet Count 283bil/L (150-400) Neutrophils (%) (Auto) 73.7% (40-74) Lymphocytes (%) (Auto) 16.2% (14-46) Monocytes (%) (Auto) 8.5% (4-12) Eosinophils (%) (Auto) 1.1% (0-5) Basophils (%) (Auto) 0.1% (0-3) Prothrombin Time 11.8sec (8.1-12.5) Prothromb Time International Ratio 1.10ratio Sodium Level 134mEq/L (134-144) Potassium Level 4.5mEq/L (3.5-5.2) Chloride Level 94mEq/L (97-108) Carbon Dioxide Level 28mmol/L (18-29) Blood Urea Nitrogen 16mg/dL (8-27) Creatinine 1.12mg/dL (0.76-1.27) Estimat Glomerular Filtration Rate 70mL/min (>59) Glucose Level 175mg/dL (60-99) Calcium Level 8.9mg/dL (8.5-10.1) Magnesium Level 1.8mg/dL (1.6-2.6) Total Bilirubin 0.4mg/dL (0.0-1.2) Aspartate Amino Transf (AST/SGOT) 17U/L (0-50) Alanine Aminotransferase (ALT/SGPT) 16U/L (0-44) Alkaline Phosphatase 72U/L (25-160) Troponin T 0.032ug/L (0.0-0.011) Total Protein 7.2g/dL (6.4-8.4) Albumin 2.6g/dL (3.4-5.0) Hold Jack Top Tube Received (Received) ECG Interpretation ECG Interpretation: Sinus rhythm with a rate of 70 Nonspecific IVCD No acute ST T changes Time: 16:19 Interpreted by: ED physician Re-Eval/Medical Decision Med Decision/Clinical Course 66-year-old male history of diabetes, hypertension presenting with left arm pain times weeks. He has been seen multiple times for this with negative x-rays. [facility] and he is [facility] a [facility]. Today left upper extremity ultrasound was performed which shows DVT left basilic vein up to the axillary vein. He has no chest pain or shortness of breath. No prior history of DVTs. I discussed with oncologist who thought patient could be discharged home if he had good outpatient follow-up or be admitted if he does not. Patient tells me he cannot get in with his primary doctor and is not comfortable with outpatient follow-up. He will be admitted for Lovenox 1mg/kg bid and warfarin. First dose given in the ER. Source of Hx: Old records Re-Evaluation/Progress #1: Time of Eval: 14:15 Re-Evaluation/Progress Note: Discussed plan for pain control and upper extremity ultrasound. Re-Evaluation/Progress #2: Time of Eval: 16:07 Re-Evaluation/Progress Note: Rechecked the patient. Discussed results, diagnosis, and plan for admission. All questions were addressed. Consultation #1: Referral / Consult Name: Lior Benedict MD Consulted With: Tip Scourer Call Returned at: 16:15 Milking Worker: Agrees with eval, Agrees with plan Consultation #2: Referral / Consult Name: Charanjit Peng Consulted With: Hospitalist Call Returned at: 17:07 Milking Worker: Will see patient, Agrees with eval, Agrees with plan, Accepts admit Counseled Regarding: Diagnosis, Lab results, Need for admission Discharge & Departure Impression: Primary Impression: DVT (deep venous thrombosis) DVT location: upper extremity Affected thrombotic vein of extremity: unspecified vein of extremity Laterality: left Chronicity: acute Qualified Code: I82.622 - Acute embolism and thrombosis of deep veins of left upper extremity Disposition: ADMITTED TO HOSPITAL Discharge Condition All VS Reviewed: Yes Condition: Stable Referrals: Denver Baker MD (PCP) Manuel[place]ana Attestation Portions of this note were transcribed by Soraya Colmenares. I, Dr. Robbins personally performed the history, physical exam and medical decision-making; I reviewed and confirmed the accuracy of the information in the transcribed note. Signed by: Minnie Garces, 01/19/2017 at [id number]. copies to: Denver Baker MD, Ben M MD January 19, 2017 14:54 Soraya Colmenares January 19, 2017 14:57
[2017-01-19 16:26] LABS: BASOPHILS % (AUTO) 0.1 % (0-3); EOSINOPHILS % (AUTO) 1.1 % (0-5); MONOCYTES % (AUTO) 8.5 % (4-12); Mean Corpuscular Hemoglobin 29.2 pg (27.0-35.0); Mean Corpuscular Volume 88.6 fL (81-100); NEUTROPHILS % (AUTO) 73.7 % (40-74); Platelet Count 283 bil/L (150-400)
[2017-01-19 16:44] LABS: INR 1.1 ratio
[2017-01-19 16:51] LABS: TROPONIN T 0.032 ug/L (0.0-0.011)
--- NOTE | 2017-01-19 16:54 | DRSVH ---
PROCEDURE: US VENOUS ARM DUPLEX UNILATERAL, LEFT INDICATIONS: LUE Pain, swelling r/o dvt TECHNIQUE: Real-time imaging, as well as color and pulse Doppler interrogation, was performed of the left upper extremity deep veins from the inferior neck to the antecubital fossa. COMPARISON: None. FINDINGS: The left subclavian and axillary vein are patent. There is occlusive thrombus present thr oughout the brachial vein as well as the radioulnar veins within the upper arm. IMPRESSION: Venous thrombus present within the single brachial vein as well as the radial and ulnar v eins within the upper arm of the forearm with clot extension in the brachial vein to the level of the axillary region. Dr. Gavin Ramirez given results by the access developer at 1540 hrs. 2016. Dictated by: Tarun ARAIZA Interpreted: Nat Hidalgo MD on 01/19/2017 at 16:51 Transcribed by: GABBY on 01/19/2017 at 16:53 Approved by: Nat Hidalgo M.D. on 01/19/2017 at 17:17
[2017-01-19 17:03] LABS: Magnesium 1.8 mg/dL (1.6-2.6)
[2017-01-19] MEDS ORDERED: Alum-Mag Hydrox-Simeth 30 mL Suspension PO PRN ×2 (17:10→18:45)
[2017-01-19] MEDS ORDERED: Ondansetron 2 mg/mL 2 mL Inj IVPUSH PRN ×2 (17:10→18:45)
[2017-01-19 17:16] VITALS: BP 116/67; PULSE 73; RESP 19; O2SAT 96
[2017-01-19 17:20] VITALS: BP 116/67; PULSE 73; RESP 19; O2SAT 96
[2017-01-19 17:51] VITALS: BP 137/79; PULSE 73; RESP 18; O2SAT 98
--- NOTE | 2017-01-19 18:28 | PCM.HPMED ---
Subjective Date of Service January 19, 2017 Primary Provider: Admitting Physician: Charanjit Peng Primary Care Physician: Denver Baker MD Attending Physician: Charanjit Peng Chief Complaint: left arm pain and swelling History of Present Illness: 66 year old male with history of osteomyelitis, chronic back pain, diabetes mellitus, neuropathy, hypertension, and hyperlipidemia, who presents with complaint of 3 weeks of ongoing and worsening left upper extremity pain and some swelling. He notes presenting to our ED 3 times and visiting his PCP [facility] last week for this problem and was thought to have possible bursitis after multiple negative x-rays. He denies any recent trauma especially to upper extremity, denies any recent IV access and denies any history of bleeding disorder or hypercoagulability. He says he woke up from sleep 3 weeks ago and noted pain throughout his left arm from his left elbow all the way up to left shoulder. He denies any associated fever, chills, or malaise. He portillo note some decreased appetite and possible small weight loss in the past 3 weeks. In the ED left upper extremity ultrasound was notable for evidence of DVT ( details as noted below). He received a dose of Lovenox and 5mg of PO Coumadin. Hematology was reportedly contacted who recommended patient could be discharged home from ED if close followup by PCP could be ensured. Because of inability to ensure close followup with PCP patient is being admitted to the hospital for continued anticoagulation therapy and bridging as inpatient until able to setup close followup with PCP. Allergies Coded Allergies: No Known Allergies (Verified Allergy, Unknown, 01/19/17) Home Medications Not yet verified but per ED report appears to be on following: Cholecalciferol (Vitamin D3) (Vitamin D3) 1,000 Unit Tab.chew 2,000 UNIT PO QAM Clotrimazole 1% (Gyne-Lotrimin 7 1%) 45 Gm Cream.appl 1 APPLIC TOPICAL BID TO FEET Dorzolamide HCl/Timolol Maleat (Dorzolamide-Timolol Eye Drops) 10 Ml Drops 1 GTT RIGHT_EYE BID Doxazosin (Cardura) 4 Mg Tablet 4 MG PO HS Finasteride (Finasteride) 5 Mg Tablet 5 MG PO QAM Gabapentin (Gabapentin) 300 Mg Capsule 900 MG PO TID Metformin (Metformin) 500 Mg Tablet 500 MG PO BID Morphine Sulfate ER (MS Contin) 30 Mg Tablet.er 30 MG PO BID Omeprazole (Omeprazole) 20 Mg Capsule.dr 20 MG PO QAM Pravastatin (Pravastatin) 20 Mg Tablet 20 MG PO HS Primidone (Primidone) 50 Mg Tablet 100 MG PO HS Propranolol HCl (Propranolol HCl) 40 Mg Tablet 40 MG PO BID Sennosides (Senna) 8.6 Mg Tablet 17.2 MG PO HS Venlafaxine ER (Venlafaxine ER) 75 Mg Cap.er.24h 225 MG PO QAM Scheduled PRN Docusate Sodium (Docusate Sodium) 250 Mg Capsule 250 MG PO BID PRN PRN For Constipation Gabapentin (Gabapentin) 300 Mg Capsule 900 MG PO DAILY PRN PRN For Pain Ibuprofen (Ibuprofen) 600 Mg Tablet 600 MG PO TID PRN PRN For Pain Lidocaine (Rectasmoothe) 5 % Cream..g. 1 APPLIC TP TID PRN PRN For Pain Oxycodone (Roxicodone) 5 Mg Tablet 5 MG PO QID PRN PRN For Pain Zolpidem (Zolpidem) 10 Mg Tablet 10 MG PO HS PRN PRN For Insomnia Exam Vital Signs & I/O Vital Sign- Last 8 Hours Date Time Temp Pulse Resp B/P Pulse Ox O2 Delivery O2 Flow Rate FiO2 01/19/17 17:51 36.5 73 18 137/79 98 Room Air 01/19/17 17:20 36.3 73 19 116/67 96 Room Air 01/19/17 17:16 73 19 116/67 96 Room Air 01/19/17 13:09 36.3 76 16 112/67 97 Room Air Lab & Micro Results Laboratory Tests Test 01/19/17 16:17 White Blood Count 7.5th/mm3 (3.8-10.1) Red Blood Count 3.59mil/mm3 (4.40-5.80) Hemoglobin 10.5g/dL (13.8-17.2) Hematocrit 31.8% (41.0-50.0) Mean Corpuscular Volume 88.6fL (81-100) Mean Corpuscular Hemoglobin 29.2pg (27.0-35.0) Mean Corpuscular Hemoglobin Concent 33.0% (32.0-37.0) Red Cell Distribution Width 12.3% (12.3-15.4) Platelet Count 283bil/L (150-400) Neutrophils (%) (Auto) 73.7% (40-74) Lymphocytes (%) (Auto) 16.2% (14-46) Monocytes (%) (Auto) 8.5% (4-12) Eosinophils (%) (Auto) 1.1% (0-5) Basophils (%) (Auto) 0.1% (0-3) Prothrombin Time 11.8sec (8.1-12.5) Prothromb Time International Ratio 1.10ratio Sodium Level 134mEq/L (134-144) Potassium Level 4.5mEq/L (3.5-5.2) Chloride Level 94mEq/L (97-108) Carbon Dioxide Level 28mmol/L (18-29) Blood Urea Nitrogen 16mg/dL (8-27) Creatinine 1.12mg/dL (0.76-1.27) Estimat Glomerular Filtration Rate 70mL/min (>59) Glucose Level 175mg/dL (60-99) Calcium Level 8.9mg/dL (8.5-10.1) Magnesium Level 1.8mg/dL (1.6-2.6) Total Bilirubin 0.4mg/dL (0.0-1.2) Aspartate Amino Transf (AST/SGOT) 17U/L (0-50) Alanine Aminotransferase (ALT/SGPT) 16U/L (0-44) Alkaline Phosphatase 72U/L (25-160) Troponin T 0.032ug/L (0.0-0.011) Total Protein 7.2g/dL (6.4-8.4) Albumin 2.6g/dL (3.4-5.0) Hold Jack Top Tube Received (Received) Result Diagram: 01/19/17 1617 01/19/17 1617 Review of Systems: Constitutional: Negative, except as otherwise mentioned in the history above. Ophthalmologic: Negative, except as otherwise mentioned in the history above. Cardiovascular: Negative, except as otherwise mentioned in the history above. Respiratory: Negative, except as otherwise mentioned in the history above. Gastrointestinal: Negative, except as otherwise mentioned in the history above. Genitourinary: Negative, except as otherwise mentioned in the history above. Musculoskeletal: Negative, except as otherwise mentioned in the history above. Neurological: Negative, except as otherwise mentioned in the history above. Psychiatric: Negative, except as otherwise mentioned in the history above. Hematologic/Lymphatic: Negative, except as otherwise mentioned in the history above. Allergic/Immunologic: Negative, except as otherwise mentioned in the history above. PMH 1. Lumbar spine problems. 2. Carpal tunnel problems. 3. Diabetes non-insulin dependent 4. Obesity. 5. Hypertension. 6. Hyperlipidemia. 7. Neuropathy. 8. Chronic back pain. 9. Osteomyelitis in toes, resolved after bilateral midfoot amputations 10. Depression and anxiety 11. BPH 12. Restless leg syndrome 13. Constipation 14. Insomnia Surgical History 1. Lumbar spine surgery. 2. Carpal tunnel surgery. 3. Bilateral midfoot amputations for osteomyelitis Family History Father with live cancer in his late 50's. Social History Hx Alcohol Use: No Hx Substance Use: No Hx Tobacco Use: No Smoking Status: Former Smoker (quit in his 20's) Exam Vital Signs Vital Sign - Last Date Time Temp Pulse Resp B/P Pulse Ox O2 Delivery O2 Flow Rate FiO2 01/19/17 17:51 36.5 73 18 137/79 98 Room Air General: Alert, Oriented X3, Cooperative, No Acute Distress Head: Normal Eyes: PERRLA, EOMI, Scleral Anicteric Nose: Mucous Membr Moist/[place] Mouth: Mucous Membr Moist/[place] Neck: Supple Chest & Lungs: Chest Wall Normal, Clear to auscultation & percussion Cardiovascular: Regular Rate/Rhythm Pulses: NL carotid, radial, femoral, DP, PT Abdomen: Non-tender, Non-distended, Normoactive bowel tones, Soft Extremities: No cyanosis/clubbing/edma bilat, Other (left arm with mild swelling and tenderness. both feet post partial amputation) Skin: Other (no ulcer or rash) Neurological: Grossly Neurologically Intact, Cranial Nerves 2-12 Intact, Normal Speech Lab and Diagnostics Result Diagram: 01/19/17 1617 01/19/17 1617 Additional Diagnostics: Date of Service: 01/19/17 1452 PROCEDURE: US VENOUS ARM DUPLEX UNILATERAL, LEFT IMPRESSION: Venous thrombus present within the single brachial vein as well as the radial and ulnar veins within the upper arm of the forearm with clot extension in the brachial vein to the level of the axillary region. Dictated by: Tarun ARAIZA Interpreted: Nat Hidalgo MD on 01/19/2017 at 16: 51 Transcribed by: GABBY on 01/19/2017 at 16:53 Approved by: Nat Hidalgo M.D. on 01/19/2017 at 17:17 Assessment & Plan 66 year old male with history of osteomyelitis, chronic back pain, diabetes mellitus, neuropathy, hypertension, and hyperlipidemia, who presents with complaint of 3 weeks of ongoing and worsening left upper extremity pain and some swelling and found to have extensive left upper extremity DVT. # Acute left upper extremity DVT, present on admission. - Unclear etiology and apparently unprovoked - Lovenox to Coumadin bridging (dose per pharmacy) - Hypercoagulable workup both as inpatient and outpatient and to be followed up by primary care provider (PCP) - No report of pulmonary symptoms and no clinical evidence of pulmonary involvement. CTA of chest not pursued at this time # Chronic diabetes. Per patient non-insulin dependent - Check HgA1C - Verify home medications and hold any oral diabetic medications while inpatient - Insulin sliding scale for now # Obesity. - Lifestyle modification and further followup by PCP as outpatient # History of Hypertension. Currently stable. - Verify home medications and resume as appropriate. # Hyperlipidemia. - Verify home medications and resume as appropriate. # History of Neuropathy. Currently stable and denies any neuropathic pain at this time - Verify home medications and resume as appropriate. # Chronic back pain. Stable - Continue with supportive care # Osteomyelitis in toes, resolved after bilateral midfoot amputations - Continue with supportive care # History of Depression and anxiety. Stable - Verify home medications and resume as appropriate. # BPH. Presumed stable. - Verify home medications and resume as appropriate. # Restless leg syndrome - Verify home medications and resume as appropriate. # Insomnia. stable - Supportive care Expected length of hospital stay is greater than 2 midnights and likely 2 days GI Prophylaxis: Proton Pump Inhibitor VTE Prophylaxis: Sub-Q Enoxaparin Resuscitation Status: DNR/DNI:Do Not Resuscitate/Intubate (discussed and verified with the patient) Time spent 60 min Charanjit Peng January 19, 2017 18:28
[2017-01-19] MEDS ORDERED: Polyethylene Glycol (PEG) 17 Gm Powder PO PRN (18:45)
[2017-01-19 18:53] VITALS: BP 137/79; PULSE 73; RESP 18; O2SAT 98
[2017-01-19] MEDS ORDERED: CIPR-231 PO (18:55)
[2017-01-19] MEDS ORDERED: GLPZ5T PO (18:55)
[2017-01-19 21:00] VITALS: BP 130/75; PULSE 72; RESP 16; O2SAT 97
[2017-01-19] MEDS: HYDROcodone-APAP 5-325 mg Tablet PO PRN (22:51)
[2017-01-19] MEDS: Insulin Human REGular 300 Unit/3 mL Inj SUBQ SCH (22:52)
[2017-01-20 00:30] VITALS: BP 132/72; PULSE 84; RESP 16; O2SAT 94
[2017-01-20 05:00] VITALS: BP 145/82; PULSE 84; RESP 16; O2SAT 97
[2017-01-20] MEDS: HYDROcodone-APAP 5-325 mg Tablet PO PRN ×2 (06:42→17:51)
[2017-01-20 07:34] LABS: INR 1.15 ratio
[2017-01-20] MEDS: Insulin Human REGular 300 Unit/3 mL Inj SUBQ SCH ×4 (08:29→22:00)
[2017-01-20] MEDS ORDERED: Lidocaine 5% 35.5 Gm Ointment TOPICAL PRN (10:35)
[2017-01-20 10:57] VITALS: BP 135/74; PULSE 88; RESP 14; O2SAT 96
--- NOTE | 2017-01-20 15:59 | DRSVH ---
PROCEDURE: CT CHEST, ABDOMEN AND PELVIS WITH CONTRAST ([id number]) INDICATIONS: 66 year-old man with unprovoked left upper extremity DVT,weight loss, and elevation of ESR (> 140). Concerning for cancer. TECHNIQUE: After the administration of intravenous contrast, 5 mm thick sections acquired from the lung apices t o the symphysis. 5 mm thick coronal and sagittal reformats were acquired. Additional 7 mm thick cor onal maximum intensity projection (MIP) reformats acquired through the lungs. Optional 10-minute del ayed imaging may be performed from the kidneys to the bladder. For radiation dose reduction, the fol lowing was used: automated exposure control, adjustment of mA and/or kV according to patient size. COMPARISON: None. FINDINGS: Image quality: Excellent. CHEST: Lungs: No pulmonary contusions or lacerations. No acute airspace opacities. No pneumothorax or hem othorax. Central and peripheral airways appear patent and normal in caliber. Mediastinum: No mediastinal hematomas. Heart size is normal. No pericardial effusion. There is mo derate coronary artery calcification Thoracic aorta and pulmonary arteries demonstrate normal size an d enhancement. No mediastinal or hilar adenopathy. Esophagus is normal in caliber. No hiatal herni a. Chest wall: The left subscapularis muscle is enlarged and demonstrates heterogeneous enhancement. Ce ntral lucency within the muscle could represent fluid collection. No large axillary or supraclavicula r adenopathy. There are a few more prominent normal-sized left axillary lymph nodes. Thyroid gland c ontains a 1 cm low density nodule in the right lower lobe. ABDOMEN: Solid organs: Liver and spleen are normal in size and enhancement, without lacerations. Gallbladder is normal. Biliary system is non-dilated. Pancreas enhances normally, without transection. No adr enal hematomas. A 2 cm hypodensity is seen in the superior pole of the right kidney Both kidneys enh ance normally, without hydronephrosis or lacerations. Peritoneum and bowel: No free fluid or air. Unenhanced bowel loops demonstrate normal wall thicknes s and caliber. There are scattered colonic diverticula. Nodes and vessels: No retroperitoneal or mesenteric adenopathy. Aorta and inferior vena cava are no rmal in size and enhancement. Miscellaneous: No ventral hernias. PELVIS: Genitourinary: Bladder wall thickness is normal. Miscellaneous: No inguinal hernias or adenopathy. Bones: Pelvic ring and hip joints appear intact. No vertebral compression fractures. Degenerative and post surgical changes in lumbar spine are noted. IMPRESSION: 1. Enlargement and heterogeneous enhancement of the left subscapularis muscle. Differential diagnoses include muscle tear/hematoma and an infiltrating mass. Contrast enhanced MRI is suggested for furthe r evaluation. 2. A 2 cm indeterminate hypodensity in the superior pole of the right kidney. Further evaluation with ultrasound is suggested. 3. A 1 cm right thyroid nodule. Recommend thyroid ultrasound for further evaluation. 4. No large lymph nodes in thorax, abdomen or pelvis. A few prominent but normal-sized left axillary lymph nodes are noted, which may be reactive. 5. Colonic diverticulosis. No active diverticulitis. 6. Coronary artery disease. The result was discussed with Dr. Bradshaw on 01/21/2017 at 0815 hours. Dictated by: Serafin Zarate M.D. on 01/20/2017 at 15:50 Transcribed by: JESSICA on 01/20/2017 at 15:59 Approved by: Serafin Zarate M.D. on 01/21/2017 at 8:36
--- NOTE | 2017-01-20 18:03 | PCM.PNMED ---
Subjective Date of Service January 20, 2017 Subjective Patient states he has been losing weight for the last few weeks. Last colonoscopy years ago. Exam Vital Signs Vital Sign - Last Date Time Temp Pulse Resp B/P Pulse Ox O2 Delivery O2 Flow Rate FiO2 01/20/17 10:57 36.8 88 14 135/74 96 Room Air Intake and Output 01/19/17 01/19/17 01/20/17 Cumulative From/Thru 14:59 22:59 06:59 01/19/17 13:09 - 01/20/17 03:34 Intake Total 0 ml 0 ml Output Total 0 ml 0 ml Balance 0 ml 0 ml Intake Oral 0 ml 0 ml Output Urine Total 0 ml 0 ml Exam General: Alert, Oriented X3, Cooperative, No Acute Distress Head: Normal Eyes: PERRLA, EOMI, Scleral Anicteric Nose: Mucous Membr Moist/Arp Mouth: Mucous Membr Moist/Arp Neck: Supple Chest & Lungs: Chest Wall Normal, Clear to auscultation & percussion Cardiovascular: Regular Rate/Rhythm Pulses: NL carotid, radial, femoral, DP, PT Abdomen: Non-tender, Non-distended, Normoactive bowel tones, Soft Extremities: No cyanosis/clubbing/edma bilat, Other (left arm with mild swelling and tenderness. both feet post partial amputation) Skin: Other (no ulcer or rash) Neurological: Grossly Neurologically Intact, Cranial Nerves 2-12 Intact, Normal Speech IVs and Medications Medications Reviewed: Medications were reviewed in detail Lab and Diagnostics Result Diagram: 01/19/17 1617 01/19/17 1617 Additional Diagnostics Date of Service: 01/19/17 1452 PROCEDURE: US VENOUS ARM DUPLEX UNILATERAL, LEFT IMPRESSION: Venous thrombus present within the single brachial vein as well as the radial and ulnar veins within the upper arm of the forearm with clot extension in the brachial vein to the level of the axillary region. Dictated by: Tarun Dixon Mark Interpreted: Nat Hidalgo MD on 01/19/2017 at 16: 51 Transcribed by: GABBY on 01/19/2017 at 16:53 Approved by: Nat Hidalgo M.D. on 01/19/2017 at 17:17 Assessment & Plan 66 year old male with history of osteomyelitis, chronic back pain, diabetes mellitus, neuropathy, hypertension, and hyperlipidemia, who presents with complaint of 3 weeks of ongoing and worsening left upper extremity pain and some swelling and found to have extensive left upper extremity DVT. # Acute left upper extremity DVT, present on admission. - Unclear etiology and apparently unprovoked - Lovenox to Coumadin bridging (dose per pharmacy) - Hypercoagulable workup both as inpatient and outpatient and to be followed up by primary care provider (PCP) - No report of pulmonary symptoms and no clinical evidence of pulmonary involvement. -Given unprovoked DVT, recent weight loss, ESR >140 , CT scan of the chest abdomen pelvis with contrast requested -We will check if he would be approved for NOACs with insurance # Chronic diabetes. Per patient non-insulin dependent - HgA1C 9.7 - Verify home medications and hold any oral diabetic medications while inpatient - Insulin sliding scale for now # Obesity. - Lifestyle modification and further followup by PCP as outpatient # History of Hypertension. Currently stable. - resume home medications # Hyperlipidemia. - resume home medications # History of Neuropathy. Currently stable and denies any neuropathic pain at this time - resume home medications # Chronic back pain. Stable - Continue with supportive care # Osteomyelitis in toes, resolved after bilateral midfoot amputations - Continue with supportive care # History of Depression and anxiety. Stable - resume home medications # BPH. Presumed stable. - resume home medications # Restless leg syndrome - resume home medications # Insomnia. stable - Supportive care Disposition: Discharge in 1-2 days. GI Prophylaxis: Proton Pump Inhibitor VTE Prophylaxis: Sub-Q Enoxaparin Resuscitation Status: DNR/DNI:Do Not Resuscitate/Intubate Wolf Bradshaw MD January 20, 2017 18:03
[2017-01-20 18:42] VITALS: BP 155/80; PULSE 98; RESP 16; O2SAT 94
[2017-01-20 20:30] VITALS: BP 156/85; PULSE 105; RESP 16; O2SAT 93
[2017-01-20] MEDS: Timolol-Dorzolamide 10 mL Ophthalmic Solution RIGHT_EYE SCH (20:33)
[2017-01-20] MEDS: Morphine ER 30 mg (MS Contin) Tablet PO SCH (20:36)
[2017-01-21 05:00] VITALS: BP 145/73; PULSE 80; RESP 16; O2SAT 95
[2017-01-21] MEDS: Pantoprazole 40 mg ER24 Tablet PO SCH (06:10)
[2017-01-21 06:25] LABS: INR 1.31 ratio
[2017-01-21] MEDS: Insulin Human REGular 300 Unit/3 mL Inj SUBQ SCH ×4 (07:30→21:34)
[2017-01-21] MEDS: HYDROcodone-APAP 5-325 mg Tablet PO PRN ×2 (07:49→18:29)
[2017-01-21] MEDS: Morphine ER 30 mg (MS Contin) Tablet PO SCH ×2 (08:30→21:24)
[2017-01-21 08:37] LABS: BASOPHILS % (AUTO) 0.3 % (0-3); EOSINOPHILS % (AUTO) 1.6 % (0-5); Mean Corpuscular Hemoglobin 28.9 pg (27.0-35.0); Mean Corpuscular Volume 87.2 fL (81-100); NEUTROPHILS % (AUTO) 65.9 % (40-74); Platelet Count 309 bil/L (150-400)
[2017-01-21] MEDS: Venlafaxine XR 75 mg ER24 Capsule PO SCH (10:38)
[2017-01-21] MEDS: Timolol-Dorzolamide 10 mL Ophthalmic Solution RIGHT_EYE SCH ×2 (10:39→21:25)
[2017-01-21 10:45] VITALS: BP 123/65; PULSE 82; RESP 14; O2SAT 90
--- NOTE | 2017-01-21 11:15 | DRSVH ---
PROCEDURE: MRI SHOULDER LEFT WITH AND WITHOUT CONTRAST (02010) INDICATIONS: subscapularis tear on CT ? TECHNIQUE: Noncontrast oblique coronal T1 spin echo and T2 fast spin echo with fat saturation, oblique sagittal T1 spin echo and T2 fast spin echo with fat saturation, axial T1 spin echo and T2 fast spin echo with fat saturation through the shoulder. Post-contrast oblique coronal, oblique sagittal, and axial T1 spin echo with fat saturation through the shoulder. COMPARISON: [facility], CR, XR CHEST 1VW (PORTABLE), 01/04/2017, 17:50. [facility], CR, XR SHOULDER MIN 2VW LT, 01/02/2017, 13:35. [facility], CT, CT CHEST ABD PELVI S W CON, 01/20/2017, 12:42. FINDINGS: Image quality: Extensive motion and inhomogeneous fat suppression results in limited evaluation of th e shoulder. Soft tissues: Evaluation of the rotator cuff is limited on this exam related to motion and inhomogene ous fat suppression artifact. There may be areas of partial thickness tearing of the rotator cuff. However, the cuff predominately is intact. However, there is a severe thickening and extensive edema of the subscapularis muscle with a large loculated intramuscular fluid collection identified that me asures at least 7.0 x 6.2 x 2.8 cm. Additional edema of the proximal triceps muscle is evident with corresponding intramuscular loculated fluid collections present measuring up to approximately 5.2 x 2 .9 x 2.8 cm (image 25, series 10). There is mild edema involving the supraspinatus muscle. There al so is peripheral edema about the infraspinatus and teres minor muscle. Otherwise, the remainder of t he imaged muscles of the left shoulder are grossly within normal limits. Degenerative tearing of the labrum appears to be present. The lung head of the biceps tendon probabl y is intact. The glenohumeral ligaments are not adequately evaluated. No definite soft tissue belle s are appreciated. Borderline prominent left axillary lymph nodes are present. Bones: Prominent marrow edema is noted involving the head of the humerus with corresponding enhancem ent, best appreciated along the posterior margin of the humeral head. No dislocation is evident. Th ere is corresponding prominent edema noted along the inferior margin of the glenoid with associated e nhancement, as well. Moderate degenerative changes of the glenohumeral joint are present. There is a large glenohumeral joint effusion with corresponding diffuse synovial enhancement. Moderate degene rative changes of the chronic clavicular joint are noted. There is thickening of the subacromial sub deltoid bursa, which may contain a small amount of fluid. IMPRESSION: 1. Severely limited MRI of the shoulder for subtle abnormalities related to motion artifact and inho mogeneous fat suppression. 2. Large peripherally enhancing intramuscular fluid collections with diffuse muscle edema involving the subscapularis and upper triceps muscles is most suspicious for infection/abscess. However, muscl e trauma with intramuscular hematomas or an intramuscular mass with internal necrosis cannot be entir ernestine excluded. No definable soft tissue mass is evident. Percutaneous aspiration of one of these locul ated fluid collections would be helpful for diagnostic purposes. 3. Moderate marrow edema and enhancement of the greater tuberosity of the humeral head and the infer ior glenoid may be posttraumatic. However, osteomyelitis cannot be excluded in this setting. Please correlate clinically. 4. Moderate glenohumeral joint effusion with synovial hypertrophy. 5. The rotator cuff is not adequately evaluated, but appears to be grossly intact. 6. Degenerative changes of the glenohumeral and acromioclavicular joints with degenerative posterior labral tearing. Dictated by: Matthew Ontiveros M.D. on 01/21/2017 at 9:58 Approved by: Matthew Ontiveros M.D. on 01/21/2017 at 10:13
[2017-01-21 12:46] VITALS: BP 138/76; PULSE 73; RESP 18; O2SAT 91
[2017-01-21 15:08] LABS: Perinuclear (P-ANCA) <1:20 titer (Neg:<1:20)
--- NOTE | 2017-01-21 17:10 | PCM.DIMED ---
Discharge Instructions Date of Service January 21, 2017 Dates of Hospitalization January 19, 2017 at 17:05 Discharge Diagnosis Discharge Diagnosis # Acute left upper extremity DVT, present on admission. # Acute left shoulder/subscapular abscess,poa # Chronic uncontrolled diabetes. Per patient non-insulin dependent # Obesity. # History of Hypertension. # Hyperlipidemia. # History of Neuropathy. # Chronic back pain. Stable # History of Osteomyelitis in toes, # History of Depression and anxiety. Stable # BPH. Presumed stable. # Restless leg syndrome # Insomnia. stable Test Results shoulder MRI IMPRESSION: 1. Severely limited MRI of the shoulder for subtle abnormalities related to motion artifact and inhomogeneous fat suppression. 2. Large peripherally enhancing intramuscular fluid collections with diffuse muscle edema involving the subscapularis and upper triceps muscles is most suspicious for infection/abscess. However, muscle trauma with intramuscular hematomas or an intramuscular mass with internal necrosis cannot be entirely excluded. No definable soft tissue mass is evident. Percutaneous aspiration of one of these loculated fluid collections would be helpful for diagnostic purposes. 3. Moderate marrow edema and enhancement of the greater tuberosity of the humeral head and the inferior glenoid may be posttraumatic. However, osteomyelitis cannot be excluded in this setting. Please correlate clinically. 4. Moderate glenohumeral joint effusion with synovial hypertrophy. 5. The rotator cuff is not adequately evaluated, but appears to be grossly intact. 6. Degenerative changes of the glenohumeral and acromioclavicular joints with degenerative posterior labral tearing. Dictated by: Matthew Ontiveros M.D. on 01/21/2017 at 9:58 Diet Diabetic Activity Limited until seen by PCP Call your provider Fever or Chills, Shortness of breath, Bleeding, Chest pain, Vomitting, Excessive diarrhea, Weakness (unilateral) Patient Instructions You were hospitalized to due to left arm DVT. Workup revealed left subscapular abscess. Orthopedic surgeon recommended transferring to [place] for surgery for better care.you have been started on warfarin and Lovenox for DVT. Also started today on Zosyn antibiotics. Blood culture sent today. Please follow- up with PCP 1 week after discharge from hospital. Follow-up with PCP in: 1 week Wolf Bradshaw MD January 21, 2017 17:10
[2017-01-21] MEDS ORDERED: 0.9% Sodium Chloride 250 ML ONE (17:18)
[2017-01-21] MEDS: Piperacillin-Tazo 3.375 Gm Inj 3.375 GM in Dextrose 5% Minibag Plus 50 ML IV SCH (17:21)
--- NOTE | 2017-01-21 17:32 | PCM.DC.MED ---
Discharge Summary Date of Service January 21, 2017 Dates of Hospitalization Date of Hospital Admission January 19, 2017 at 17:05 Date of Discharge: January 21, 2017 Providers: Admitting Physician: Charanjit Peng Primary Care Physician: Denver Baker MD Attending Physician: Charanjit Peng Diagnosis at Time of Discharge Diagnosis at Time of Discharge # Acute left upper extremity DVT, present on admission. # Acute left shoulder/subscapular abscess,poa # Chronic uncontrolled diabetes. Per patient non-insulin dependent # Obesity. # History of Hypertension. # Hyperlipidemia. # History of Neuropathy. # Chronic back pain. Stable # History of Osteomyelitis in toes, # History of Depression and anxiety. Stable # BPH. Presumed stable. # Restless leg syndrome # Insomnia. stable Procedures XRay, CTs & MRIs PROCEDURE: MRI SHOULDER LEFT WITH AND WITHOUT CONTRAST ([id number]) INDICATIONS: subscapularis tear on CT ? TECHNIQUE: Noncontrast oblique coronal T1 spin echo and T2 fast spin echo with fat saturation, oblique sagittal T1 spin echo and T2 fast spin echo with fat saturation, axial T1 spin echo and T2 fast spin echo with fat saturation through the shoulder. Post-contrast oblique coronal, oblique sagittal, and axial T1 spin echo with fat saturation through the shoulder. COMPARISON: [facility], CR, XR CHEST 1VW (PORTABLE), 01/04/2017, 17: 50. [facility], CR, XR SHOULDER MIN 2VW LT, 01/02/2017, 13:35. [facility], CT, CT CHEST ABD PELVIS W CON, 01/20/2017, 12:42. FINDINGS: Image quality: Extensive motion and inhomogeneous fat suppression results in limited evaluation of the shoulder. Soft tissues: Evaluation of the rotator cuff is limited on this exam related to motion and inhomogeneous fat suppression artifact. There may be areas of partial thickness tearing of the rotator cuff. However, the cuff predominately is intact. However, there is a severe thickening and extensive edema of the subscapularis muscle with a large loculated intramuscular fluid collection identified that measures at least 7.0 x 6.2 x 2.8 cm. Additional edema of the proximal triceps muscle is evident with corresponding intramuscular loculated fluid collections present measuring up to approximately 5.2 x 2.9 x 2.8 cm ( image 25, series 10). There is mild edema involving the supraspinatus muscle. There also is peripheral edema about the infraspinatus and teres minor muscle. Otherwise, the remainder of the imaged muscles of the left shoulder are grossly within normal limits. Degenerative tearing of the labrum appears to be present. The lung head of the biceps tendon probably is intact. The glenohumeral ligaments are not adequately evaluated. No definite soft tissue masses are appreciated. Borderline prominent left axillary lymph nodes are present. Bones: Prominent marrow edema is noted involving the head of the humerus with corresponding enhancement, best appreciated along the posterior margin of the humeral head. No dislocation is evident. There is corresponding prominent edema noted along the inferior margin of the glenoid with associated enhancement , as well. Moderate degenerative changes of the glenohumeral joint are present. There is a large glenohumeral joint effusion with corresponding diffuse synovial enhancement. Moderate degenerative changes of the chronic clavicular joint are noted. There is thickening of the subacromial subdeltoid bursa, which may contain a small amount of fluid. IMPRESSION: 1. Severely limited MRI of the shoulder for subtle abnormalities related to motion artifact and inhomogeneous fat suppression. 2. Large peripherally enhancing intramuscular fluid collections with diffuse muscle edema involving the subscapularis and upper triceps muscles is most suspicious for infection/abscess. However, muscle trauma with intramuscular hematomas or an intramuscular mass with internal necrosis cannot be entirely excluded. No definable soft tissue mass is evident. Percutaneous aspiration of one of these loculated fluid collections would be helpful for diagnostic purposes. 3. Moderate marrow edema and enhancement of the greater tuberosity of the humeral head and the inferior glenoid may be posttraumatic. However, osteomyelitis cannot be excluded in this setting. Please correlate clinically. 4. Moderate glenohumeral joint effusion with synovial hypertrophy. 5. The rotator cuff is not adequately evaluated, but appears to be grossly intact. 6. Degenerative changes of the glenohumeral and acromioclavicular joints with degenerative posterior labral tearing. Dictated by: Matthew Ontiveros M.D. on 01/21/2017 at 9:58 PROCEDURE: CT CHEST, ABDOMEN AND PELVIS WITH CONTRAST ([id number]) INDICATIONS: 66 year-old man with unprovoked left upper extremity DVT,weight loss, and elevation of ESR (> 140). Concerning for cancer. IMPRESSION: 1. Enlargement and heterogeneous enhancement of the left subscapularis muscle. Differential diagnoses include muscle tear/hematoma and an infiltrating mass. Contrast enhanced MRI is suggested for further evaluation. 2. A 2 cm indeterminate hypodensity in the superior pole of the right kidney. Further evaluation with ultrasound is suggested. 3. A 1 cm right thyroid nodule. Recommend thyroid ultrasound for further evaluation. 4. No large lymph nodes in thorax, abdomen or pelvis. A few prominent but normal -sized left axillary lymph nodes are noted, which may be reactive. 5. Colonic diverticulosis. No active diverticulitis. 6. Coronary artery disease. The result was discussed with Dr. Bradshaw on 01/21/2017 at 0815 hours. Dictated by: Serafin Zarate M.D. on 01/20/2017 at 15:50 PROCEDURE: US VENOUS ARM DUPLEX UNILATERAL, LEFT INDICATIONS: LUE Pain, swelling r/o dvt TECHNIQUE: Real-time imaging, as well as color and pulse Doppler interrogation, was performed of the left upper extremity deep veins from the inferior neck to the antecubital fossa. COMPARISON: None. FINDINGS: The left subclavian and axillary vein are patent. There is occlusive thrombus present throughout the brachial vein as well as the radioulnar veins within the upper arm. IMPRESSION: Venous thrombus present within the single brachial vein as well as the radial and ulnar veins within the upper arm of the forearm with clot extension in the brachial vein to the level of the axillary region. Dr. Gavin Ramirez given results by the cutter operator tile at 1540 hrs. 2016. Dictated by: Tarun ARAIZA Interpreted: Nat Hidalgo MD on 01/19/2017 at 16: 51 Other Diagnostics Date of Service: 01/19/17 0855 PROCEDURE: US VENOUS ARM DUPLEX UNILATERAL, LEFT IMPRESSION: Venous thrombus present within the single brachial vein as well as the radial and ulnar veins within the upper arm of the forearm with clot extension in the brachial vein to the level of the axillary region. Dictated by: Tarun ARAIZA Interpreted: Nat Hidalgo MD on 01/19/2017 at 16: 51 Transcribed by: GABBY on 01/19/2017 at 16:53 Approved by: Nat Hidalgo M.D. on 01/19/2017 at 17:17 Brief History per [facility] 66 year old male with history of osteomyelitis, chronic back pain, diabetes mellitus, neuropathy, hypertension, and hyperlipidemia, who presents with complaint of 3 weeks of ongoing and worsening left upper extremity pain and some swelling. He notes presenting to our ED 3 times and visiting his PCP at the [place] last week for this problem and was thought to have possible bursitis after multiple negative x-rays. He denies any recent trauma especially to upper extremity, denies any recent IV access and denies any history of bleeding disorder or hypercoagulability. He says he woke up from sleep 3 weeks ago and noted pain throughout his left arm from his left elbow all the way up to left shoulder. He denies any associated fever, chills, or malaise. He portillo note some decreased appetite and possible small weight loss in the past 3 weeks. In the ED left upper extremity ultrasound was notable for evidence of DVT ( details as noted below). He received a dose of Lovenox and 5mg of PO Coumadin. Hematology was reportedly contacted who recommended patient could be discharged home from ED if close followup by PCP could be ensured. Because of inability to ensure close followup with PCP patient is being admitted to the hospital for continued anticoagulation therapy and bridging as inpatient until able to setup close followup with PCP. Hospital Course 66 year old male with history of osteomyelitis, chronic back pain, diabetes mellitus, neuropathy, hypertension, and hyperlipidemia, who presents with complaint of 3 weeks of ongoing and worsening left upper extremity pain and some swelling and found to have extensive left upper extremity DVT. # Left subscapular abscess,poa -Patient presented with left upper extremity DVT. Workup revealed left subscapular loculated abscess. Patient afebrile. No leukocytosis. Denies trauma. -Blood culture sent. Started on Zosyn today 01/21 -Consulted interventional radiology, abscess loculated , consulted orthopedics Dr. David Solis, recommended transfer to [place] for exploration. -We will transfer to [facility] per patient preference # Acute left upper extremity DVT, present on admission. - Initially Unclear etiology and unprovoked but now found to have subscapular abscess on workup -Started on Lovenox and Coumadin bridging. Received 2 doses of warfarin. INR today 1.3 - No report of pulmonary symptoms and no clinical evidence of pulmonary involvement. - ESR >140 , CT scan of the chest abdomen pelvis with contrast as above # Chronic diabetes. Per patient non-insulin dependent - HgA1C 9.7 # Obesity. # History of Hypertension. Currently stable. - resume home medications # Hyperlipidemia. - resume home medications # History of Neuropathy. Currently stable and denies any neuropathic pain at this time - resume home medications # Chronic back pain. Stable - Continue with supportive care # History of Osteomyelitis in toes, resolved after bilateral midfoot amputations - Continue with supportive care # History of Depression and anxiety. Stable - resume home medications # BPH. Presumed stable. - resume home medications # Restless leg syndrome - resume home medications # Insomnia. stable - Supportive care Disposition: Transferred to [facility] for subscapular/shoulder exploration Exam Vital Signs (Last) Date Time Temp Pulse Resp B/P Pulse Ox O2 Delivery O2 Flow Rate FiO2 01/21/17 12:46 36.8 73 18 138/76 91 Room Air Exam General: Alert, Oriented X3, Cooperative, No Acute Distress Head: Normal Eyes: PERRLA, EOMI, Scleral Anicteric Nose: Mucous Membr Moist/[place] Mouth: Mucous Membr Moist/[place] Neck: Supple Chest & Lungs: Chest Wall Normal, Clear to auscultation & percussion Cardiovascular: Regular Rate/Rhythm Pulses: NL carotid, radial, femoral, DP, PT Abdomen: Non-tender, Non-distended, Normoactive bowel tones, Soft Extremities: No cyanosis/clubbing/edma bilat, Other (left arm with mild swelling and tenderness. both feet post partial amputation). Left subscapular tenderness. Patient unable to lift his left shoulder above 45. Tenderness on passive movement Skin: Other (no ulcer or rash) Neurological: Grossly Neurologically Intact, Cranial Nerves 2-12 Intact, Normal Speech Test 01/19/17 16:17 01/19/17 19:35 01/21/17 05:35 Erythrocyte Sedimentation Rate > 140mm/hr (0-30) Hemoglobin A1c 9.7% (4.8-5.6) Magnesium Level 1.8mg/dL (1.6-2.6) Troponin T 0.032ug/L (0.0-0.011) Hold Purple Top Tube Received (Received) Hold Red Top Tube Received (Received) Hold [place] Top Tube Received (Received) Hold Jack Top Tube Received (Received) Anti-Nuclear Antibody Screen Negative (Negative) Cytoplasmic ANCA (c-ANCA) Antibody <1:20titer (Neg:<1:20) Atypical p-ANCA <1:20titer (Neg:<1:20) Perinuclear ANCA (p-ANCA) Antibody <1:20titer (Neg:<1:20) Complement C3 144mg/dL (82-167) Complement C4 30mg/dL (14-44) Rapid Plasma Reagin Non reactive (Non Reactive) White Blood Count 6.1th/mm3 (3.8-10.1) Red Blood Count 3.91mil/mm3 (4.40-5.80) Hemoglobin 11.3g/dL (13.8-17.2) Hematocrit 34.1% (41.0-50.0) Mean Corpuscular Volume 87.2fL (81-100) Mean Corpuscular Hemoglobin 28.9pg (27.0-35.0) Mean Corpuscular Hemoglobin Concent 33.1% (32.0-37.0) Red Cell Distribution Width 12.4% (12.3-15.4) Platelet Count 309bil/L (150-400) Neutrophils (%) (Auto) 65.9% (40-74) Lymphocytes (%) (Auto) 21.9% (14-46) Monocytes (%) (Auto) 10.0% (4-12) Eosinophils (%) (Auto) 1.6% (0-5) Basophils (%) (Auto) 0.3% (0-3) Prothrombin Time 14.1sec (8.1-12.5) Prothromb Time International Ratio 1.31ratio Sodium Level 138mEq/L (134-144) Potassium Level 4.7mEq/L (3.5-5.2) Chloride Level 98mEq/L (97-108) Carbon Dioxide Level 28mmol/L (18-29) Blood Urea Nitrogen 11mg/dL (8-27) Creatinine 0.81mg/dL (0.76-1.27) Estimat Glomerular Filtration Rate 101mL/min (>59) Glucose Level 112mg/dL (60-99) Calcium Level 9.0mg/dL (8.5-10.1) Total Bilirubin 0.4mg/dL (0.0-1.2) Aspartate Amino Transf (AST/SGOT) 24U/L (0-50) Alanine Aminotransferase (ALT/SGPT) 18U/L (0-44) Alkaline Phosphatase 82U/L (25-160) Total Protein 6.7g/dL (6.4-8.4) Albumin 2.9g/dL (3.4-5.0) Procalcitonin 0.19ng/mL (0.00-0.08) Discharge Medications Discharge Medications Cholecalciferol (Vitamin D3) (Vitamin D3) 1,000 Unit Tab.chew 2,000 UNIT PO QAM (Reported) Dorzolamide HCl/Timolol Maleat (Dorzolamide-Timolol Eye Drops) 10 Ml Drops 1 GTT RIGHT_EYE BID (Reported) Doxazosin (Cardura) 4 Mg Tablet 4 MG PO HS (Reported) Finasteride (Finasteride) 5 Mg Tablet 5 MG PO QAM (Reported) Gabapentin (Gabapentin) 300 Mg Capsule 900 MG PO TID (Reported) Glipizide (Glipizide) 5 Mg Tablet 5 MG PO BID (Reported) Metformin (Metformin) 500 Mg Tablet 500 MG PO BID Prescribed by: FAWAD JOHNSON MD Morphine Sulfate ER (MS Contin) 30 Mg Tablet.er 30 MG PO BID (Reported) Omeprazole (Omeprazole) 20 Mg Capsule.dr 20 MG PO QAM (Reported) Pravastatin (Pravastatin) 20 Mg Tablet 20 MG PO HS (Reported) Primidone (Primidone) 50 Mg Tablet 100 MG PO HS (Reported) Propranolol HCl (Propranolol HCl) 40 Mg Tablet 40 MG PO BID (Reported) Sennosides (Senna) 8.6 Mg Tablet 17.2 MG PO HS (Reported) Venlafaxine ER (Venlafaxine ER) 75 Mg Cap.er.24h 225 MG PO QAM (Reported) As needed Clotrimazole 1% (Gyne-Lotrimin 7 1%) 45 Gm Cream.appl 1 APPLIC TOPICAL BID PRN PRN fungal infection (Reported) TO FEET Docusate Sodium (Docusate Sodium) 250 Mg Capsule 250 MG PO BID PRN PRN For Constipation (Reported) Gabapentin (Gabapentin) 300 Mg Capsule 900 MG PO DAILY PRN PRN For Pain ( Reported) Lidocaine (Rectasmoothe) 5 % Cream..g. 1 APPLIC TP TID PRN PRN For Pain ( Reported) Oxycodone (Roxicodone) 5 Mg Tablet 5 MG PO QID PRN PRN For Pain (Reported) Zolpidem (Zolpidem) 10 Mg Tablet 10 MG PO HS PRN PRN For Insomnia (Reported) Followup Plan Disposition: Transfer to [place] [facility] Discharge Diet: Diabetic Discharge Activity: Limited until seen by PCP Patient Instructions You were hospitalized to due to left arm DVT. Workup revealed left subscapular abscess. Orthopedic surgeon recommended transferring to [place] for surgery for better care.you have been started on warfarin and Lovenox for DVT. Also started today on Zosyn antibiotics. Blood culture sent today. Please follow- up with PCP 1 week after discharge from hospital. Follow-up with PCP in: 1 week Time spent 40 minutes coordinating transfer Wolf Bradshaw MD January 21, 2017 17:32 Wolf Bradshaw MD January 21, 2017 17:32
[2017-01-21 19:08] LABS: Protein C-Functional 127 % (73-180)
[2017-01-21 20:03] VITALS: BP 149/72; PULSE 89; RESP 20; O2SAT 91
[2017-01-22] MEDS: Piperacillin-Tazo 3.375 Gm Inj 3.375 GM in Dextrose 5% Minibag Plus 50 ML IV SCH ×2 (01:02→10:32)
[2017-01-22] MEDS: HYDROcodone-APAP 5-325 mg Tablet PO PRN (01:03)
[2017-01-22 05:37] VITALS: BP 125/72; PULSE 73; RESP 18; O2SAT 93
[2017-01-22] MEDS: Pantoprazole 40 mg ER24 Tablet PO SCH (06:30)
[2017-01-22 06:37] LABS: INR 1.65 ratio
[2017-01-22] MEDS: Insulin Human REGular 300 Unit/3 mL Inj SUBQ SCH ×2 (07:30→13:22)
[2017-01-22] MEDS: Timolol-Dorzolamide 10 mL Ophthalmic Solution RIGHT_EYE SCH (09:39)
[2017-01-22] MEDS: Venlafaxine XR 75 mg ER24 Capsule PO SCH (09:42)
[2017-01-22] MEDS: Morphine ER 30 mg (MS Contin) Tablet PO SCH (09:46)
[2017-01-22 09:50] VITALS: BP 93/59; PULSE 74; RESP 17; O2SAT 96
[2017-01-22 10:29] VITALS: BP 124/64; PULSE 77
--- NOTE | 2017-01-22 12:10 | PCM.CONORT ---
Subjective Date of Surgery: January 21, 2017 Surgeon Admitting Provider:Charanjit Peng Attending Provider:Charanjit Peng Primary Care Physician:Denver Baker MD Other Provider: Reason for Consultation: Left shoulder suspected tendon tear Allergy Allergies: Coded Allergies: No Known Allergies (Verified Allergy, Unknown, 01/19/17) Medications Cholecalciferol (Vitamin D3) (Vitamin D3) 1,000 Unit Tab.chew 2,000 UNIT PO QAM (Reported) Last Taken: Unknown Dose on 01/19/17 Clotrimazole 1% (Gyne-Lotrimin 7 1%) 45 Gm Cream.appl 1 APPLIC TOPICAL BID PRN PRN fungal infection (Reported) TO FEET Last Taken: Unknown Dose on Unknown Date & Time Docusate Sodium (Docusate Sodium) 250 Mg Capsule 250 MG PO BID PRN PRN For Constipation (Reported) Last Taken: Unknown Dose on Unknown Date & Time Dorzolamide HCl/Timolol Maleat (Dorzolamide-Timolol Eye Drops) 10 Ml Drops 1 GTT RIGHT_EYE BID (Reported ) Last Taken: Unknown Dose on 01/19/17 Doxazosin (Cardura) 4 Mg Tablet 4 MG PO HS (Reported) Last Taken: Unknown Dose on 01/18/17 Finasteride (Finasteride) 5 Mg Tablet 5 MG PO QAM (Reported) Last Taken: Unknown Dose on 01/19/17 Gabapentin (Gabapentin) 300 Mg Capsule 900 MG PO TID (Reported) Last Taken: Unknown Dose on 01/19/17 Gabapentin (Gabapentin) 300 Mg Capsule 900 MG PO DAILY PRN PRN For Pain (Reported) Last Taken: Unknown Dose on Unknown Date & Time Glipizide (Glipizide) 5 Mg Tablet 5 MG PO BID (Reported) Last Taken: Unknown Dose on 01/19/17 Lidocaine (Rectasmoothe) 5 % Cream..g. 1 APPLIC TP TID PRN PRN For Pain (Reported) Last Taken: Unknown Dose on Unknown Date & Time Metformin (Metformin) 500 Mg Tablet 500 MG PO BID Prescribed by: FAWAD JOHNSON MD Last Taken: Unknown Dose on 01/19/17 Morphine Sulfate ER (MS Contin) 30 Mg Tablet.er 30 MG PO BID (Reported) Last Taken: Unknown Dose on 01/19/17 Omeprazole (Omeprazole) 20 Mg Capsule.dr 20 MG PO QAM (Reported) Last Taken: Unknown Dose on 01/19/17 Oxycodone (Roxicodone) 5 Mg Tablet 5 MG PO QID PRN PRN For Pain (Reported) Last Taken: Unknown Dose on Unknown Date & Time Pravastatin (Pravastatin) 20 Mg Tablet 20 MG PO HS (Reported) Last Taken: Unknown Dose on 01/18/17 Primidone (Primidone) 50 Mg Tablet 100 MG PO HS (Reported) Last Taken: Unknown Dose on 01/18/17 Propranolol HCl (Propranolol HCl) 40 Mg Tablet 40 MG PO BID (Reported) Last Taken: Unknown Dose on 01/19/17 Sennosides (Senna) 8.6 Mg Tablet 17.2 MG PO HS (Reported) Last Taken: Unknown Dose on 01/19/17 Venlafaxine ER (Venlafaxine ER) 75 Mg Cap.er.24h 225 MG PO QAM (Reported) Last Taken: Unknown Dose on 01/19/17 Zolpidem (Zolpidem) 10 Mg Tablet 10 MG PO HS PRN PRN For Insomnia (Reported) Last Taken: Unknown Dose on Unknown Date & Time Discontinued Medications Ciprofloxacin (Cipro) 500 Mg Tablet 500 MG PO BID x 7 days (Reported) Last Taken: Unknown Dose on 01/19/17 Ibuprofen (Ibuprofen) 600 Mg Tablet 600 MG PO TID PRN PRN For Pain Prescribed by: FAWAD JOHNSON MD History History of ENT Problems?: No HEENT History: Positive for:: Cataracts (had surgery right eye) Denture Type: None Hx of Heart Problems?: No Cardiovascular History: Positive for:: Hypertension Denies:: Congestive Heart Failure Hx of Respiratory Problem?: No Respiratory History: Denies:: Tuberculosis Hx Neurologic Problems?: No Hx of GI Problems?: No Hx of Problems?: No Genitourinary History: Denies:: Kidney Stones Urinary Tract Infection Male Hx: Positive for:: Prostate Problems (enlarged prostate) Hx Musculoskeletal Problems?: Yes Other History/Comment This is a 66-year-old right-handed dominant male that presents with a three- week history of left shoulder pain. He denies any trauma or change in activity at the onset of his symptoms. He describes achiness to the anterior aspect of the shoulder. He feels that it radiates down his arm along the medial aspect of the upper arm. He was seen at the hospital multiple times for the left shoulder pain. He has difficulty with any motion to the shoulder. Lifting it up or out causes significant pain. As his symptoms were not improving his primary care physician sent him back to the emergency room. He was identified at that time that he had a upper extremity DVT. With the ultrasound was also noted that he had a likely tendon tear to the shoulder and orthopedics was counseled. An MRI was also obtained. He denies any constitutional symptoms including any fevers, sweats or chills. He states that he has not had any real appetite over the last few weeks. He denies any new problems with bowel or bladder function. He has described a previous infections in the past which has led to partial limitations to both of his feet. He attributes this to ulcerations from his diabetic peripheral neuropathy. Hx of Psycho/Social Problems?: No Hx Surgeries?: Yes (partial foot amputations) Hx Any Other Health Problems?: Yes History Blood Transfusions: Positive for:: Accept Blood Products? Denies:: Blood Transfuse Reaction Blood Transfusions Hx Diabetes: YesBedside Blood Glucose: 75 Hx Alcohol Use: NoHx Substance Use: No Smoking Status: Former Smoker Objective Exam Vital Signs & I/O Vital Sign- Last 8 Hours Date Time Temp Pulse Resp B/P Pulse Ox O2 Delivery O2 Flow Rate FiO2 01/22/17 10:29 77 124/64 01/22/17 09:50 36.4 74 17 93/59 96 Room Air 01/22/17 05:37 36.6 73 18 125/72 93 Room Air Intake and Output- Last 8 Hour 01/22/17 Cumulative From/Thru 07:00 01/19/17 13:09 - 01/22/17 06:33 Intake Total 303 ml 2657 ml Output Total 620 ml 2995 ml Balance -317 ml -338 ml Intake Oral 150 ml 2464 ml IV Total 153 ml 193 ml Output Urine Total 620 ml 2995 ml # Voids 2 # Bowel Movements 0 0 Lab & Micro Results Laboratory Tests Test 01/22/17 05:15 Prothrombin Time 17.8sec (8.1-12.5) Prothromb Time International Ratio 1.65ratio Microbiology 01/21/17 Blood Culture - Preliminary, Resulted Positive Blood Culture Result Diagram: 01/21/17 0535 01/21/17 0535 Review of Systems: Constitutional: Negative, except as otherwise mentioned in the history above. Ophthalmologic: Negative, except as otherwise mentioned in the history above. Cardiovascular: Negative, except as otherwise mentioned in the history above. Respiratory: Negative, except as otherwise mentioned in the history above. Gastrointestinal: Negative, except as otherwise mentioned in the history above. Genitourinary: Negative, except as otherwise mentioned in the history above. Musculoskeletal: Left shoulder pain has stated in the history of present illness Neurological: Negative, except as otherwise mentioned in the history above. Psychiatric: Negative, except as otherwise mentioned in the history above. Hematologic/Lymphatic: Negative, except as otherwise mentioned in the history above. Allergic/Immunologic: Negative, except as otherwise mentioned in the history above. H&P Surgical Exam Exam General: Alert, Oriented X3, Cooperative, No Acute Distress HEENT: Within normal limits & unremarkable Neck: Within normal limits & unremarkable Breasts: Not Indicated Pelvic: Not Indicated Musculoskeletal: Gen: Alert and oriented, no apparent distress Extremity: No open wounds, abrasions or ecchymosis to the left shoulder Tenderness palpation to the anterior joint line No warmth or palpable fluctuance appreciated No surrounding erythema Intact sensation in axillary, median, radial and ulnar nerve distribution Range of motion of the shoulder is limited to 60 of forward flexion, 60 of abduction, 45 of external rotation with arm at the side Resisted internal rotation leads to significant pain Diagnostic studies: MRI obtained demonstrates abscess formation and edema involving nearly the entirety of the subscapularis and tracks to the anterior medial aspect of the scapula H&P Preop Plan Impression Left shoulder deep abscess Problems: (1) Abscess of left shoulder Status: Acute ICD Code: L02.414 Plan There is significant edema around the subscapularis and an abscess tracking underneath it on the anterior scapular body. The abscess tracks medially towards the chest wall.. This will require a higher level facility in order to get this abscess treated and drained. I discussed the case with my other partners who agreed that this patient needs to be transferred. David Solis DO January 22, 2017 12:10
[2017-01-22] MEDS ORDERED: Vancomycin Dose per Pharmacist XX SCH (12:25)
[2017-01-22] MEDS ORDERED: 0.9% Sodium Chloride 1,000 ML IV SCH (12:30)
[2017-01-22] MEDS ORDERED: Vancomycin Inj 2,000 MG in 0.9% Sodium Chloride 500 ML IV ONE (12:40)
[2017-01-22 12:58] VITALS: BP 131/74; PULSE 75; O2SAT 94
--- NOTE | 2017-01-22 14:05 | PCM.DC.MED ---
Discharge Summary Date of Service January 22, 2017 Dates of Hospitalization Date of Hospital Admission January 19, 2017 at 17:05 Date of Discharge: January 22, 2017 Providers: Admitting Physician: Charanjit Peng Primary Care Physician: Denver Baker MD Attending Physician: Charanjit Peng Diagnosis at Time of Discharge Diagnosis at Time of Discharge # Acute left shoulder/subscapular abscess and Staphylococcus bactremeia ,poa # Acute left upper extremity DVT, present on admission. # Chronic uncontrolled diabetes. Per patient non-insulin dependent # Obesity. # History of Hypertension. # Hyperlipidemia. # History of Neuropathy. # Chronic back pain. Stable # History of Osteomyelitis in toes, # History of Depression and anxiety. Stable # BPH. Presumed stable. # Restless leg syndrome # Insomnia. stable Consultations orthopedics Dr Solis Procedures XRay, CTs & MRIs PROCEDURE: MRI SHOULDER LEFT WITH AND WITHOUT CONTRAST ([id number]) INDICATIONS: subscapularis tear on CT ? TECHNIQUE: Noncontrast oblique coronal T1 spin echo and T2 fast spin echo with fat saturation, oblique sagittal T1 spin echo and T2 fast spin echo with fat saturation, axial T1 spin echo and T2 fast spin echo with fat saturation through the shoulder. Post-contrast oblique coronal, oblique sagittal, and axial T1 spin echo with fat saturation through the shoulder. COMPARISON: Formerly [facility], CR, XR CHEST 1VW (PORTABLE), 01/04/2017, 17: 50. Former[facility], CR, XR SHOULDER MIN 2VW LT, 01/02/2017, 13:35. Formerly [facility], CT, CT CHEST ABD PELVIS W CON, 01/20/2017, 12:42. FINDINGS: Image quality: Extensive motion and inhomogeneous fat suppression results in limited evaluation of the shoulder. Soft tissues: Evaluation of the rotator cuff is limited on this exam related to motion and inhomogeneous fat suppression artifact. There may be areas of partial thickness tearing of the rotator cuff. However, the cuff predominately is intact. However, there is a severe thickening and extensive edema of the subscapularis muscle with a large loculated intramuscular fluid collection identified that measures at least 7.0 x 6.2 x 2.8 cm. Additional edema of the proximal triceps muscle is evident with corresponding intramuscular loculated fluid collections present measuring up to approximately 5.2 x 2.9 x 2.8 cm ( image 25, series 10). There is mild edema involving the supraspinatus muscle. There also is peripheral edema about the infraspinatus and teres minor muscle. Otherwise, the remainder of the imaged muscles of the left shoulder are grossly within normal limits. Degenerative tearing of the labrum appears to be present. The lung head of the biceps tendon probably is intact. The glenohumeral ligaments are not adequately evaluated. No definite soft tissue masses are appreciated. Borderline prominent left axillary lymph nodes are present. Bones: Prominent marrow edema is noted involving the head of the humerus with corresponding enhancement, best appreciated along the posterior margin of the humeral head. No dislocation is evident. There is corresponding prominent edema noted along the inferior margin of the glenoid with associated enhancement , as well. Moderate degenerative changes of the glenohumeral joint are present. There is a large glenohumeral joint effusion with corresponding diffuse synovial enhancement. Moderate degenerative changes of the chronic clavicular joint are noted. There is thickening of the subacromial subdeltoid bursa, which may contain a small amount of fluid. IMPRESSION: 1. Severely limited MRI of the shoulder for subtle abnormalities related to motion artifact and inhomogeneous fat suppression. 2. Large peripherally enhancing intramuscular fluid collections with diffuse muscle edema involving the subscapularis and upper triceps muscles is most suspicious for infection/abscess. However, muscle trauma with intramuscular hematomas or an intramuscular mass with internal necrosis cannot be entirely excluded. No definable soft tissue mass is evident. Percutaneous aspiration of one of these loculated fluid collections would be helpful for diagnostic purposes. 3. Moderate marrow edema and enhancement of the greater tuberosity of the humeral head and the inferior glenoid may be posttraumatic. However, osteomyelitis cannot be excluded in this setting. Please correlate clinically. 4. Moderate glenohumeral joint effusion with synovial hypertrophy. 5. The rotator cuff is not adequately evaluated, but appears to be grossly intact. 6. Degenerative changes of the glenohumeral and acromioclavicular joints with degenerative posterior labral tearing. Dictated by: Matthew Ontiveros M.D. on 01/21/2017 at 9:58 PROCEDURE: CT CHEST, ABDOMEN AND PELVIS WITH CONTRAST ([id number]) INDICATIONS: 66 year-old man with unprovoked left upper extremity DVT,weight loss, and elevation of ESR (> 140). Concerning for cancer. IMPRESSION: 1. Enlargement and heterogeneous enhancement of the left subscapularis muscle. Differential diagnoses include muscle tear/hematoma and an infiltrating mass. Contrast enhanced MRI is suggested for further evaluation. 2. A 2 cm indeterminate hypodensity in the superior pole of the right kidney. Further evaluation with ultrasound is suggested. 3. A 1 cm right thyroid nodule. Recommend thyroid ultrasound for further evaluation. 4. No large lymph nodes in thorax, abdomen or pelvis. A few prominent but normal -sized left axillary lymph nodes are noted, which may be reactive. 5. Colonic diverticulosis. No active diverticulitis. 6. Coronary artery disease. The result was discussed with Dr. Bradshaw on 01/21/2017 at 0815 hours. Dictated by: Serafin Zarate M.D. on 01/20/2017 at 15:50 PROCEDURE: US VENOUS ARM DUPLEX UNILATERAL, LEFT INDICATIONS: LUE Pain, swelling r/o dvt TECHNIQUE: Real-time imaging, as well as color and pulse Doppler interrogation, was performed of the left upper extremity deep veins from the inferior neck to the antecubital fossa. COMPARISON: None. FINDINGS: The left subclavian and axillary vein are patent. There is occlusive thrombus present throughout the brachial vein as well as the radioulnar veins within the upper arm. IMPRESSION: Venous thrombus present within the single brachial vein as well as the radial and ulnar veins within the upper arm of the forearm with clot extension in the brachial vein to the level of the axillary region. Dr. Gavin Ramirez given results by the television writer at 1540 hrs. 2016. Dictated by: Tarun ARAIZA Interpreted: Nat Hidalgo MD on 01/19/2017 at 16: 51 Other Diagnostics Date of Service: 01/19/17 1452 PROCEDURE: US VENOUS ARM DUPLEX UNILATERAL, LEFT IMPRESSION: Venous thrombus present within the single brachial vein as well as the radial and ulnar veins within the upper arm of the forearm with clot extension in the brachial vein to the level of the axillary region. Dictated by: Tarun ARAIZA Interpreted: Nat Hidalgo MD on 01/19/2017 at 16: 51 Transcribed by: GABBY on 01/19/2017 at 16:53 Approved by: Nat Hidalgo M.D. on 01/19/2017 at 17:17 Brief History per HPi 66 year old male with history of osteomyelitis, chronic back pain, diabetes mellitus, neuropathy, hypertension, and hyperlipidemia, who presents with complaint of 3 weeks of ongoing and worsening left upper extremity pain and some swelling. He notes presenting to our ED 3 times and visiting his PCP at the [place] last week for this problem and was thought to have possible bursitis after multiple negative x-rays. He denies any recent trauma especially to upper extremity, denies any recent IV access and denies any history of bleeding disorder or hypercoagulability. He says he woke up from sleep 3 weeks ago and noted pain throughout his left arm from his left elbow all the way up to left shoulder. He denies any associated fever, chills, or malaise. He portillo note some decreased appetite and possible small weight loss in the past 3 weeks. In the ED left upper extremity ultrasound was notable for evidence of DVT ( details as noted below). He received a dose of Lovenox and 5mg of PO Coumadin. Hematology was reportedly contacted who recommended patient could be discharged home from ED if close followup by PCP could be ensured. Because of inability to ensure close followup with PCP patient is being admitted to the hospital for continued anticoagulation therapy and bridging as inpatient until able to setup close followup with PCP. Hospital Course 66 year old male with history of osteomyelitis, chronic back pain, diabetes mellitus, neuropathy, hypertension, and hyperlipidemia, who presents with complaint of 3 weeks of ongoing and worsening left upper extremity pain and some swelling and found to have extensive left upper extremity DVT. # Left subscapular abscess and staphylococcus bacteremia ,poa -Patient presented with left upper extremity DVT. Workup revealed left subscapular loculated abscess. Blood culture growing Staphylococcus. Patient afebrile. No leukocytosis. Denies trauma. - Started on Zosyn today 01/21. Added vancomycin 01/22 -Consulted interventional radiology, abscess loculated , consulted orthopedics Dr. David Solis, recommended transfer to [place] for exploration. -We will transfer to [facility] . Tried to transfer to [place] Per patient preference but no bed available since yesterday -We will also order a transthoracic echocardiogram meanwhile . # Acute left upper extremity DVT, present on admission. - Initially Unclear etiology and unprovoked but now found to have subscapular abscess on workup -Initially Started on Lovenox and Coumadin bridging. Received 2 doses of warfarin. INR today 1.6. Did not get warfarin last night. Continued on Lovenox - No report of pulmonary symptoms and no clinical evidence of pulmonary involvement. - ESR >140 , CT scan of the chest abdomen pelvis with contrast as above # Chronic diabetes. Per patient non-insulin dependent - HgA1C 9.7 on current admission # Obesity. # History of Hypertension. Currently stable. - resume home medications # Hyperlipidemia. - resume home medications # History of Neuropathy. Currently stable and denies any neuropathic pain at this time - resume home medications # Chronic back pain. Stable - Continue with supportive care # History of Osteomyelitis in toes, resolved after bilateral midfoot amputations - Continue with supportive care # History of Depression and anxiety. Stable - resume home medications # BPH. Presumed stable. - resume home medications # Restless leg syndrome - resume home medications # Insomnia. stable - Supportive care Disposition: Transferr to [facility] for subscapular/shoulder exploration accepting hospitalist physician at [facility] Dr Vernon Mcguire Exam Vital Signs (Last) Date Time Temp Pulse Resp B/P Pulse Ox O2 Delivery O2 Flow Rate FiO2 01/22/17 12:58 36.7 75 131/74 94 01/22/17 09:50 17 Room Air Exam General: Alert, Oriented X3, Cooperative, No Acute Distress Head: Normal Eyes: PERRLA, EOMI, Scleral Anicteric Nose: Mucous Membr Moist/[place] Mouth: Mucous Membr Moist/[place] Neck: Supple Chest & Lungs: Chest Wall Normal, Clear to auscultation & percussion Cardiovascular: Regular Rate/Rhythm Pulses: NL carotid, radial, femoral, DP, PT Abdomen: Non-tender, Non-distended, Normoactive bowel tones, Soft Extremities: No cyanosis/clubbing/edma bilat, Other (left arm with mild swelling and tenderness. both feet post partial amputation). Left subscapular tenderness. Patient unable to lift his left shoulder above 45. Tenderness on passive movement Skin: Other (no ulcer or rash) Neurological: Grossly Neurologically Intact, Cranial Nerves 2-12 Intact, Normal Speech Test 01/19/17 16:17 01/19/17 19:35 01/21/17 05:35 01/22/17 05:15 Erythrocyte Sedimentation Rate > 140mm/hr (0-30) Hemoglobin A1c 9.7% (4.8-5.6) Magnesium Level 1.8mg/dL (1.6-2.6) Troponin T 0.032ug/L (0.0-0.011) Hold Purple Top Tube Received (Received) Plasminogen Activity 125% (70-150) Lupus Anticoagulant APTT 48.1sec (0.0-43.6) Lupus Anticoag Mix PTT Pat/Norm 1:1 46.8sec (0.0-40.6) Dilute Shankar Viper Venom (Lupus) 53.0sec (0.0-47.0) DRVVT Mixing Study 45.2sec (0.0-47.0) Hexagonal Phase Phospholipid 0sec (0-11) Lupus Anticoagulant Interpretation Comment: (.) Functional Protein C 127% (73-180) Functional Protein S 94% (63-140) Anti-Thrombin III Activity 91% (75-135) Hold Red Top Tube Received (Received) Hold [place] Top Tube Received (Received) Hold Jack Top Tube Received (Received) Anti-Nuclear Antibody Screen Negative (Negative) Cytoplasmic ANCA (c-ANCA) Antibody <1:20titer (Neg:<1:20) Atypical p-ANCA <1:20titer (Neg:<1:20) Perinuclear ANCA (p-ANCA) Antibody <1:20titer (Neg:<1:20) Anti-Cardiolipin IgG Antibody < 9GPL U/mL (0-14) Anti-Cardiolipin IgA Antibody < 9APL U/mL (0-11) Complement C3 144mg/dL (82-167) Complement C4 30mg/dL (14-44) Rapid Plasma Reagin Non reactive (Non Reactive) White Blood Count 6.1th/mm3 (3.8-10.1) Red Blood Count 3.91mil/mm3 (4.40-5.80) Hemoglobin 11.3g/dL (13.8-17.2) Hematocrit 34.1% (41.0-50.0) Mean Corpuscular Volume 87.2fL (81-100) Mean Corpuscular Hemoglobin 28.9pg (27.0-35.0) Mean Corpuscular Hemoglobin Concent 33.1% (32.0-37.0) Red Cell Distribution Width 12.4% (12.3-15.4) Platelet Count 309bil/L (150-400) Neutrophils (%) (Auto) 65.9% (40-74) Lymphocytes (%) (Auto) 21.9% (14-46) Monocytes (%) (Auto) 10.0% (4-12) Eosinophils (%) (Auto) 1.6% (0-5) Basophils (%) (Auto) 0.3% (0-3) Sodium Level 138mEq/L (134-144) Potassium Level 4.7mEq/L (3.5-5.2) Chloride Level 98mEq/L (97-108) Carbon Dioxide Level 28mmol/L (18-29) Blood Urea Nitrogen 11mg/dL (8-27) Creatinine 0.81mg/dL (0.76-1.27) Estimat Glomerular Filtration Rate 101mL/min (>59) Glucose Level 112mg/dL (60-99) Calcium Level 9.0mg/dL (8.5-10.1) Total Bilirubin 0.4mg/dL (0.0-1.2) Aspartate Amino Transf (AST/SGOT) 24U/L (0-50) Alanine Aminotransferase (ALT/SGPT) 18U/L (0-44) Alkaline Phosphatase 82U/L (25-160) Total Protein 6.7g/dL (6.4-8.4) Albumin 2.9g/dL (3.4-5.0) Procalcitonin 0.19ng/mL (0.00-0.08) Prothrombin Time 17.8sec (8.1-12.5) Prothromb Time International Ratio 1.65ratio Microbiology Results Name: BRYANT WESLEY JR Age/Sex: 66/M Attend Dr: Charanjit Peng Acct: [id number] Unit: [id number] Status: ADM IN Location: [facility] 1022-1 Re01/19/17 Disch: Specimen: [id number] Collected: 01/21/17-1414 Status: JACKELINE Javed#: [id number] Received: 01/21/17-3945 Source: BLOOD Sp Desc : AA Subm Dr: Wolf Bradshaw MD Ordered: DIANA Comments: Collected by Nurse/Unit? Y/N N Procedure Result Verified Site Microbiology DAVID CULTURE BLOOD Preliminary 01/22/17-1131 Organism 1 POSITIVE BLOOD CULTURE GRAM STAIN RESULT GRAM POSITIVE COCCI ?STAPH BC BOTTLE Isolated from Aerobic Bottle of Set Drawn DATE CALLED: 01/22/17 TIME CALLED: 1129 CALLED BY: VF FLOOR/DOCTOR: NAHOMY/SARABJIT Landa READ BACK Y TYPE OF DRAW PERIPHERAL DRAW TIME OF POSITIVITY 1115 Discharge Medications Discharge Medications Cholecalciferol (Vitamin D3) (Vitamin D3) 1,000 Unit Tab.chew 2,000 UNIT PO QAM (Reported) Dorzolamide HCl/Timolol Maleat (Dorzolamide-Timolol Eye Drops) 10 Ml Drops 1 GTT RIGHT_EYE BID (Reported) Doxazosin (Cardura) 4 Mg Tablet 4 MG PO HS (Reported) Finasteride (Finasteride) 5 Mg Tablet 5 MG PO QAM (Reported) Gabapentin (Gabapentin) 300 Mg Capsule 900 MG PO TID (Reported) Glipizide (Glipizide) 5 Mg Tablet 5 MG PO BID (Reported) Metformin (Metformin) 500 Mg Tablet 500 MG PO BID Prescribed by: FAWAD JOHNSON MD Morphine Sulfate ER (MS Contin) 30 Mg Tablet.er 30 MG PO BID (Reported) Omeprazole (Omeprazole) 20 Mg Capsule.dr 20 MG PO QAM (Reported) Pravastatin (Pravastatin) 20 Mg Tablet 20 MG PO HS (Reported) Primidone (Primidone) 50 Mg Tablet 100 MG PO HS (Reported) Propranolol HCl (Propranolol HCl) 40 Mg Tablet 40 MG PO BID (Reported) Sennosides (Senna) 8.6 Mg Tablet 17.2 MG PO HS (Reported) Venlafaxine ER (Venlafaxine ER) 75 Mg Cap.er.24h 225 MG PO QAM (Reported) As needed Clotrimazole 1% (Gyne-Lotrimin 7 1%) 45 Gm Cream.appl 1 APPLIC TOPICAL BID PRN PRN fungal infection (Reported) TO FEET Docusate Sodium (Docusate Sodium) 250 Mg Capsule 250 MG PO BID PRN PRN For Constipation (Reported) Gabapentin (Gabapentin) 300 Mg Capsule 900 MG PO DAILY PRN PRN For Pain ( Reported) Lidocaine (Rectasmoothe) 5 % Cream..g. 1 APPLIC TP TID PRN PRN For Pain ( Reported) Oxycodone (Roxicodone) 5 Mg Tablet 5 MG PO QID PRN PRN For Pain (Reported) Zolpidem (Zolpidem) 10 Mg Tablet 10 MG PO HS PRN PRN For Insomnia (Reported) Followup Plan Disposition: Transferred to [facility] Hospital Discharge Diet: Diabetic Discharge Activity: Limited until seen by PCP Patient Instructions You were hospitalized to due to left arm DVT. Workup revealed left subscapular abscess. Orthopedic surgeon recommended transferring to [place] for surgery for better care.you have been started on warfarin and Lovenox for DVT. Also started today on Zosyn antibiotics. Blood culture sent today. Please follow- up with PCP 1 week after discharge from hospital. Follow-up with PCP in: 1 week Time spent 1 hour coordinating discharge Wolf Bradshaw MD January 22, 2017 14:05
--- NOTE | 2017-01-22 19:01 | DRSVH ---
[facility] [address] [place] [address] Echocardiogram Report Name: BRYANT WESLEY te: 01/22/2017 Height: 70 in Hospital Exam Location: [facility] Weight: 238 lb Gender: Male BSA: 2.2 m2 : 1950 Age: 66 yrs BP: 131/74 mmHg Reason For Study: BACTEREMIA Ordering Physician: Performed By: [facility] Interpretation Summary Normal sinus rhythm. Normal LV size and wall thickness. There is basal inferolateral, mid- inferolateral, mid-anterolateral and distal lateral hypokinesis. EF is 45- 50%. Stage I diastolic dysfunction. Aortic valve is mildly thickened. There is a filamentous lesion prolapsing into the left ventricle. This is best appreciated in parasternal long axis view; there is no associated aortic regurgitation. In the right clinical setting this filamentous lesion could represent endocarditis versus Lambl's excrescense. If clinically suspected, recommend further endocarditis evaluation via JORGE. No valvular abnormalities otherwise. No prior study is available for comparison. Procedure: A two-dimensional transthoracic echocardiogram with color flow and Doppler was performed. The study quality was technically difficult. There is no prior echocardiogram noted for this patient. A contrast injection of Definity was performed to improve assessment of LV function. The patient was in normal sinus rhythm during the exam. Left Ventricle: The left ventricle is normal in size. There is normal left ventricular wall thickness. Diastolic function could not be accurately assessed due to unobtainable data. Atria: The left atrium is not well visualized. Right atrium not well visualized. Mitral Valve: The mitral valve is not well visualized. The mitral valve is grossly normal. Cannot entirely exclude the possibility of a small vegetation on the MV posterior leaflet. There is trace mitral regurgitation. Aortic Valve: The aortic valve opens well. No aortic regurgitation is present. Tricuspid Valve: The tricuspid valve is not well visualized, but is grossly normal. There is a trace or physiologic amount of tricuspid regurgitation. Pulmonary artery pressures cannot be estimated because of the lack of a measurable TR jet velocity. Pulmonic Valve: The pulmonic valve is not well seen, but is grossly normal. Great Vessels: The aortic root is not well visualized but is probably normal size. The ascending aorta is mildly enlarged. The aortic arch could not be visualized. The IVC is of normal diameter and collapses greater than 50% with a sniff. This suggests a low right atrial pressure of 3 mm Hg. Pericardium/ Pleura There is no pericardial effusion. MMode/2D Measurements & Calculations LVIDd: 5.0 cm IVC diam LVOT diam LV minaya. diameter/BSA LVIDs: 3.5 cm : 1.4 cm (cm/m^2): 2.2 FS: 31.2 % asc Aorta IVSd: 0.99 cm Diam: 3.6 cm LVPWd: 0.73 cm LV sys. diameter/BSA (cm/m^2): 1.5 Doppler Measurements & Calculations Ao V2 max MV E max lucio MV E/A: 1.1 PA V2 max : 137.5 cm/sec : 74.5 cm/sec Pulm A Revs Dur : 87.5 cm/sec Ao max PG MV A max lucio PA mean PG : 7.6 mmHg : 69.6 cm/sec MV A dur: 0.11 sec Ao mean PG MV P1/2t: 63.5 msec PA Accel Time : 0.12 sec LVOT Max Lucio : 106.6 cm/sec VICTOR MANUEL(I,D): 3.3 cm sev ratio MV dec time MV P1/2t max lucio Ao V2 mean LV V1 max PG : 0.21 sec : 100.0 cm/sec MVA(P1/2t): 3.5 cm2 Ao V2 VTI: 27.7 cm LV V1 VTI VICTOR MANUEL(V,D): 3.7 cm2 : 18.9 cm PA V2 mean VICTOR MANUEL indexed to JUDI Hancock - MV A : 55.8 cm/sec (cm^2/m^2): 1.5 Dur: -0.01 msec Reading Physician:05:50 PM
--- NOTE | 2017-01-26 16:16 | PCM.CONSUR ---
Subjective Date of Service: January 21, 2017 History of Present Illness This is a 66-year-old right-handed dominant male that presents with a three- week history of left shoulder pain. He denies any trauma or change in activity at the onset of his symptoms. He describes achiness to the anterior aspect of the shoulder. He feels that it radiates down his arm along the medial aspect of the upper arm. He was seen at the hospital multiple times for the left shoulder pain. He has difficulty with any motion to the shoulder. Lifting it up or out causes significant pain. As his symptoms were not improving his primary care physician sent him back to the emergency room. He was identified at that time that he had a upper extremity DVT. With the ultrasound was also noted that he had a likely tendon tear to the shoulder and orthopedics was counseled. An MRI was also obtained. He denies any constitutional symptoms including any fevers, sweats or chills. He states that he has not had any real appetite over the last few weeks. He denies any new problems with bowel or bladder function. He has described a previous infections in the past which has led to partial limitations to both of his feet. He attributes this to ulcerations from his diabetic peripheral neuropathy. Reason for Consultation r/o rotator cuff tear Allergy Allergies: Coded Allergies: No Known Allergies (Verified Allergy, Unknown, 01/19/17) Medications Cholecalciferol (Vitamin D3) (Vitamin D3) 1,000 Unit Tab.chew 2,000 UNIT PO QAM (Reported) Last Taken: Unknown Dose on 01/19/17 Clotrimazole 1% (Gyne-Lotrimin 7 1%) 45 Gm Cream.appl 1 APPLIC TOPICAL BID PRN PRN fungal infection (Reported) TO FEET Last Taken: Unknown Dose on Unknown Date & Time Docusate Sodium (Docusate Sodium) 250 Mg Capsule 250 MG PO BID PRN PRN For Constipation (Reported) Last Taken: Unknown Dose on Unknown Date & Time Dorzolamide HCl/Timolol Maleat (Dorzolamide-Timolol Eye Drops) 10 Ml Drops 1 GTT RIGHT_EYE BID (Reported ) Last Taken: Unknown Dose on 01/19/17 Doxazosin (Cardura) 4 Mg Tablet 4 MG PO HS (Reported) Last Taken: Unknown Dose on 01/18/17 Finasteride (Finasteride) 5 Mg Tablet 5 MG PO QAM (Reported) Last Taken: Unknown Dose on 01/19/17 Gabapentin (Gabapentin) 300 Mg Capsule 900 MG PO TID (Reported) Last Taken: Unknown Dose on 01/19/17 Gabapentin (Gabapentin) 300 Mg Capsule 900 MG PO DAILY PRN PRN For Pain (Reported) Last Taken: Unknown Dose on Unknown Date & Time Glipizide (Glipizide) 5 Mg Tablet 5 MG PO BID (Reported) Last Taken: Unknown Dose on 01/19/17 Lidocaine (Rectasmoothe) 5 % Cream..g. 1 APPLIC TP TID PRN PRN For Pain (Reported) Last Taken: Unknown Dose on Unknown Date & Time Metformin (Metformin) 500 Mg Tablet 500 MG PO BID Prescribed by: FAWAD JOHNSON MD Last Taken: Unknown Dose on 01/19/17 Morphine Sulfate ER (MS Contin) 30 Mg Tablet.er 30 MG PO BID (Reported) Last Taken: Unknown Dose on 01/19/17 Omeprazole (Omeprazole) 20 Mg Capsule.dr 20 MG PO QAM (Reported) Last Taken: Unknown Dose on 01/19/17 Oxycodone (Roxicodone) 5 Mg Tablet 5 MG PO QID PRN PRN For Pain (Reported) Last Taken: Unknown Dose on Unknown Date & Time Pravastatin (Pravastatin) 20 Mg Tablet 20 MG PO HS (Reported) Last Taken: Unknown Dose on 01/18/17 Primidone (Primidone) 50 Mg Tablet 100 MG PO HS (Reported) Last Taken: Unknown Dose on 01/18/17 Propranolol HCl (Propranolol HCl) 40 Mg Tablet 40 MG PO BID (Reported) Last Taken: Unknown Dose on 01/19/17 Sennosides (Senna) 8.6 Mg Tablet 17.2 MG PO HS (Reported) Last Taken: Unknown Dose on 01/19/17 Venlafaxine ER (Venlafaxine ER) 75 Mg Cap.er.24h 225 MG PO QAM (Reported) Last Taken: Unknown Dose on 01/19/17 Zolpidem (Zolpidem) 10 Mg Tablet 10 MG PO HS PRN PRN For Insomnia (Reported) Last Taken: Unknown Dose on Unknown Date & Time Discontinued Medications Ciprofloxacin (Cipro) 500 Mg Tablet 500 MG PO BID x 7 days (Reported) Last Taken: Unknown Dose on 01/19/17 Ibuprofen (Ibuprofen) 600 Mg Tablet 600 MG PO TID PRN PRN For Pain Prescribed by: FAWAD JOHNSON MD Past Surgical History Surgeries: Yes (partial foot amputations) Patient/Family Past Surgical: Positive for:: Accept Blood Products?, Denies:: Anesthesia Reactions, Blood Transfuse Reaction, Blood Transfusions Social History Hx Alcohol Use: No Hx Substance Use: No Hx Tobacco Use: No PMH HEENT History History of ENT Problems?: No HEENT History: Positive for:: Cataracts (had surgery right eye) Cardiovascular History History of Heart Problems?: No Cardiovascular History: Positive for:: Hypertension Denies:: Congestive Heart Failure Respiratory History of Respiratory Problem: No Respiratory History: Denies:: Tuberculosis Neurological History Hx Neurologic Problems?: No Gastrointestinal History HX of GI Problems?: No Genitourinary History Hx of Gu Problems?: No Genitourinary History: Denies: Kidney Stones Urinary Tract Infection Female/Male History Reproductive History Male: Positive for: Prostate Problems (enlarged prostate) Musculoskeletal History Hx Musculoskeletal Problems?: Yes Psycho Social History Hx of Psycho/Social Problems?: No Other History Hx Any Other Health Problems?: Yes Diabetes: YesBedside Blood Glucose: 70 Social History Hx Alcohol Use: NoHx Substance Use: NoHx Tobacco Use: No Smoking Status: Former Smoker Objective Exam Vital Signs & I/O Intake and Output- Last 8 Hour 01/26/17 Cumulative From/Thru 07:00 01/19/17 13:09 - 01/22/17 19:12 Intake Total 3305 ml Output Total 2995 ml Balance 310 ml Intake Oral 2464 ml IV Total 841 ml Output Urine Total 2995 ml # Voids 2 # Bowel Movements 0 Lab & Micro Results Microbiology 01/21/17 Blood Culture - Final, Complete Coag Negative Staphylococcus 01/22/17 MRSA (PCR) - Final, Complete Result Diagram: 01/21/17 0535 01/21/17 0535 Review of Systems: Constitutional: Negative, except as otherwise mentioned in the history above. Ophthalmologic: Negative, except as otherwise mentioned in the history above. Cardiovascular: Negative, except as otherwise mentioned in the history above. Respiratory: Negative, except as otherwise mentioned in the history above. Gastrointestinal: Negative, except as otherwise mentioned in the history above. Genitourinary: Negative, except as otherwise mentioned in the history above. Musculoskeletal: Left shoulder pain as stated in the history above. Neurological: Negative, except as otherwise mentioned in the history above. Psychiatric: Negative, except as otherwise mentioned in the history above. Hematologic/Lymphatic: Negative, except as otherwise mentioned in the history above. Allergic/Immunologic: Negative, except as otherwise mentioned in the history above. H&P Surgical Exam Exam General: Alert, Oriented X3, Cooperative, No Acute Distress HEENT: Within normal limits & unremarkable Neck: Within normal limits & unremarkable Breasts: Not Indicated Pelvic: Not Indicated Musculoskeletal: Gen: Alert and oriented, no apparent distress Extremity: No open wounds, abrasions or ecchymosis to the left shoulder Tenderness palpation to the anterior joint line No warmth or palpable fluctuance appreciated No surrounding erythema Intact sensation in axillary, median, radial and ulnar nerve distribution Range of motion of the shoulder is limited to 60 of forward flexion, 60 of abduction, 45 of external rotation with arm at the side Resisted internal rotation leads to significant pain Additional Information Diagnostic studies: MRI obtained demonstrates abscess formation and edema involving nearly the entirety of the subscapularis and tracks to the anterior medial aspect of the scapula Assessment & Plan Assessment Left shoulder deep abscess Problems: (1) Abscess of left shoulder Status: Acute ICD Code: L02.414 VTE Prophylaxis: Sub-Q Enoxaparin Plan: There is significant edema around the subscapularis and an abscess tracking underneath it on the anterior scapular body. The abscess tracks medially towards the chest wall. This will require a higher level facility in order to get this abscess treated and drained. I discussed the case with my other partners who agreed that this patient needs to be transferred. Resuscitation Status: DNR/DNI:Do Not Resuscitate/Intubate David Solis DO January 26, 2017 16:16
== END 2017-01-22 19:33 | disposition short-term general hospital (02) | DRG 300 ==
LOC: SED 13:07 → OSC 17:05
PROVIDERS: ADMIT Internal Medicine; ATTEND Internal Medicine
DX: I82.622 Acute embolism and thrombosis of deep veins of left upper extremity (principal); R78.81 Bacteremia; M60.001 Infective myositis, unspecified left arm; B95.8 Unspecified staphylococcus as the cause of diseases classified elsewhere; Z79.84 Long term (current) use of oral hypoglycemic drugs; Z89.421 Acquired absence of other right toe(s); Z89.422 Acquired absence of other left toe(s); Z87.891 Personal history of nicotine dependence; E66.09 Other obesity due to excess calories; M54.9 Dorsalgia, unspecified; I10 Essential (primary) hypertension; E78.5 Hyperlipidemia, unspecified; G58.9 Mononeuropathy, unspecified; F32.9 Major depressive disorder, single episode, unspecified; F41.9 Anxiety disorder, unspecified; N40.0 Benign prostatic hyperplasia without lower urinary tract symptoms; G25.81 Restless legs syndrome; Z66 Do not resuscitate; B95.7 Other staphylococcus as the cause of diseases classified elsewhere; E11.65 Type 2 diabetes mellitus with hyperglycemia; Z68.34 Body mass index [BMI] 34.0-34.9, adult

== ENCOUNTER 2017-04-21 18:02 | Emergency (ER) | payer MEDICARE, OTHER ==
[~2017-04-21] VITALS: Ht 177.8 cm; Wt 109.1 kg
[~2017-04-21 18:02] MED LIST changes: +GLPZ5T PO; -IBUP-1827 PO
[2017-04-21 18:30] VITALS: BP 140/73; PULSE 70; RESP 15; O2SAT 98
--- NOTE | 2017-04-21 19:06 | ED.REPORT ---
HPI-General Illness Date of Service Apr 21, 2017 ED Provider: Ac Quintanilla MD The patient is a 66 year old male with a history of LUE DVT secondary to "an infection", diabetes mellitus, hypertension. hyperlipidemia, obesity and chronic pain who presents to the ED with intermittent SOB that began 4 days ago. Patient was seen at this afternoon and was sent to the ED for further evaluation. Associated symptoms include sinus pressure, nasal congestion and insomnia secondary to discomfort. His SOB is exacerbated by laying down and relieved by standing. She feels like the tissue in his mouth and neck slumps down makes it hard for him to breathe. The patient recently has been holding his Coumadin secondary to supratherapeutic INR. He denies any fever, cough, wheezing, or pain. He denies any pleuritic symptoms. He denies any arm or leg swelling. He denies any history of pulmonary embolism. He denies any chest pain. Nursing Notes Stated Complaint: SHORTNESS OF BREATH/SENT FROM URGENT CARE Chief Complaint: Respiratory Complaints Nursing Notes Reviewed: Yes Allergies: Coded Allergies: No Known Allergies (Verified Allergy, Unknown, 04/21/17) Scheduled Cholecalciferol (Vitamin D3) (Vitamin D3) 1,000 Unit Tab.chew 2,000 UNIT PO QAM Dorzolamide HCl/Timolol Maleat (Dorzolamide-Timolol Eye Drops) 10 Ml Drops 1 GTT RIGHT_EYE BID Doxazosin (Cardura) 4 Mg Tablet 4 MG PO HS Finasteride (Finasteride) 5 Mg Tablet 5 MG PO QAM Gabapentin (Gabapentin) 300 Mg Capsule 900 MG PO TID Glipizide (Glipizide) 5 Mg Tablet 5 MG PO BID Metformin (Metformin) 500 Mg Tablet 500 MG PO BID Morphine Sulfate ER (MS Contin) 30 Mg Tablet.er 30 MG PO BID Omeprazole (Omeprazole) 20 Mg Capsule.dr 20 MG PO QAM Pravastatin (Pravastatin) 20 Mg Tablet 20 MG PO HS Primidone (Primidone) 50 Mg Tablet 100 MG PO HS Propranolol HCl (Propranolol HCl) 40 Mg Tablet 40 MG PO BID Sennosides (Senna) 8.6 Mg Tablet 17.2 MG PO HS Venlafaxine ER (Venlafaxine ER) 75 Mg Cap.er.24h 225 MG PO QAM Scheduled PRN Clotrimazole 1% (Gyne-Lotrimin 7 1%) 45 Gm Cream.appl 1 APPLIC TOPICAL BID PRN PRN fungal infection TO FEET Docusate Sodium (Docusate Sodium) 250 Mg Capsule 250 MG PO BID PRN PRN For Constipation Gabapentin (Gabapentin) 300 Mg Capsule 900 MG PO DAILY PRN PRN For Pain Lidocaine (Rectasmoothe) 5 % Cream..g. 1 APPLIC TP TID PRN PRN For Pain Oxycodone (Roxicodone) 5 Mg Tablet 5 MG PO QID PRN PRN For Pain Zolpidem (Zolpidem) 10 Mg Tablet 10 MG PO HS PRN PRN For Insomnia General Time Seen by MD: 19:05 Chief Complaint Other (Dyspnea) Hx Obtained From: Patient Arrived By: Walk-in Sudden in Onset?: No Onset Occurred: 4 days ago Symptom Duration: Since onset Associated with: Reports: Nasal discharge, Shortness of breath, Denies: Cough, Fever Pertinent Negative: Pt denies other symptoms Recent Healthcare: No recent doctor visit, No recent hospitalization Past Medical History Past Medical History 1. Lumbar spine problems. 2. Carpal tunnel problems. 3. Diabetes. 4. Obesity. 5. Hypertension. 6. Hyperlipidemia. 7. Neuropathy. 8. Chronic back pain. 9. Hx of osteomyelitis in toes, resolved after bilateral midfoot amputations 10. Depression and anxiety 11. BPH 12. Restless leg syndrome 13. Constipation 14. Insomnia Denies: Asthma Past Surgical History 1. Lumbar spine surgery. 2. Carpal tunnel surgery. 3. Bilateral midfoot amputations for osteomyelitis Family History Noncontributory Smoking History Former Smoker Social History Lives at [facility] Other Social History: Good social support, Local resident Ambulatory Status Independent Review of Systems Full Review of Systems Constitutional: Denies: Fever Ears / Nose / Throat: Reports: Nasal congestion, Sinus problem Respiratory: Reports: Shortness of breath, Denies: Non-productive cough, Wheezing Cardiovascular: Denies: Chest pain GI: Denies: Abdominal pain Psychiatric: Reports: Insomnia Complete sys rev & neg: except as marked. Physical Exam Vital Signs Vital Signs Date Time Temp Pulse Resp B/P Pulse Ox O2 Delivery O2 Flow Rate FiO2 04/21/17 23:14 80 16 164/77 94 Room Air 04/21/17 18:30 36.3 70 15 140/73 98 Room Air Initial VS: Reviewed Extremities: Vascular intact, Neuro intact, No swelling, No tenderness Skin: Warm, Dry, No cyanosis Neurologic: Alert, Oriented, Nonfocal Psychiatric: Mood/affect normal, Behavior normal, Normal thought content General/Constitutional: Awake, Alert, No acute distress, Well appearing, Well developed Appearance / Presentation: Positive: Obese Head / Eyes: Atraumatic, Normocephalic, PERRL, EOMI Neck: Atraumatic, Supple, Non-tender Short adipose neck Respiratory / Chest: Atraumatic, Breath sounds NL, Breath sounds = bilat, No respiratory distress, No wheezing, No stridor Cardiovascular: Heart rate NL, Regular rhythm, Heart sounds NL, No gallop, No murmurs, No rubs Well healed scar to the left anterior shoulder Abdomen: Atraumatic, Soft, Non-tender, No distention Interpretation & Diagnostics Lab Results Interpretation Result Diagram: 04/21/17199904/21/171999 Test 04/21/17 20:00 04/21/17 22:15 White Blood Count 5.3th/mm3 (3.8-10.1) Red Blood Count 3.41mil/mm3 (4.40-5.80) Hemoglobin 10.0g/dL (13.8-17.2) Hematocrit 30.7% (41.0-50.0) Mean Corpuscular Volume 90.0fL (81-100) Mean Corpuscular Hemoglobin 29.3pg (27.0-35.0) Mean Corpuscular Hemoglobin Concent 32.6% (32.0-37.0) Red Cell Distribution Width 14.2% (12.3-15.4) Platelet Count 167bil/L (150-400) Neutrophils (%) (Auto) 59.7% (40-74) Lymphocytes (%) (Auto) 27.2% (14-46) Monocytes (%) (Auto) 9.3% (4-12) Eosinophils (%) (Auto) 3.2% (0-5) Basophils (%) (Auto) 0.6% (0-3) Prothrombin Time 40.8sec (8.1-12.5) Prothromb Time International Ratio 3.71ratio Sodium Level 140mEq/L (134-144) Potassium Level 5.1mEq/L (3.5-5.2) Chloride Level 101mEq/L (97-108) Carbon Dioxide Level 26mmol/L (18-29) Blood Urea Nitrogen 24mg/dL (8-27) Creatinine 0.98mg/dL (0.76-1.27) Estimat Glomerular Filtration Rate 81mL/min (>59) Glucose Level 90mg/dL (60-99) Calcium Level 9.1mg/dL (8.5-10.1) Total Bilirubin 0.2mg/dL (0.0-1.2) Aspartate Amino Transf (AST/SGOT) 17U/L (0-50) Alanine Aminotransferase (ALT/SGPT) 11U/L (0-44) Alkaline Phosphatase 49U/L (25-160) Pro-B-Type Natriuretic Peptide 364.5pg/mL (0-376) Total Protein 7.0g/dL (6.4-8.4) Albumin 3.8g/dL (3.4-5.0) Troponin T 0.012ug/L (0.0-0.011) ECG Interpretation ECG Interpretation: Sinus rhythm Rate 65 bpm Normal axis Nonspecfic intraventricular conduction delay Prior - 01/19/17 Time: 17:02 Interpreted by: ED physician CT Chest Interpretation IMPRESSION: No evidence of pulmonary embolism Study type: CT pulm angiogram Interpretation / Wet Read by: Interpret - Radiologist ([facility]) Re-Eval/Medical Decision Med Decision/Clinical Course The patient is a 66 year old male with a history of LUE DVT secondary to "an infection", diabetes mellitus, hypertension. hyperlipidemia, obesity and chronic pain who presents to the ED with intermittent SOB that began 4 days ago. Patient was seen at this afternoon and was sent to the ED for further evaluation. Associated symptoms include sinus pressure, nasal congestion and insomnia secondary to discomfort. His SOB is exacerbated by laying down and relieved by standing. She feels like the tissue in his mouth and neck slumps down makes it hard for him to breathe. The patient recently has been holding his Coumadin secondary to supratherapeutic INR. He denies any fever, cough, wheezing, or pain. He denies any pleuritic symptoms. He denies any arm or leg swelling. He denies any history of pulmonary embolism. He denies any chest pain. Here in the emergency department the patient is afebrile with stable vital signs and examination as above. EKG Sinus rhythm Rate 65 bpm Normal axis Nonspecific intraventricular conduction delay Prior - 01/19/17 Labs CBC unremarkable Hct 30.7 slightly decreased from prior Troponin mildly elevated 0.013 INR 0.71 No prior troponin for comparison Repeat Trop 0.012 CT chest angio IMPRESSION: No evidence of PE She was sent to the emergency department from urgent care due to concern for pulmonary embolism. That being said the patient is without tachypnea, tachycardia or pleuritic chest pain. His INR is supratherapeutic further making the possibility of pulmonary embolism less likely. CT angiogram of the chest demonstrates no pulmonary embolism. Initial troponin is very mildly elevated. That being said, his presentation and initial EKG are not suggestive of acute coronary syndrome. He has no prior history of acute coronary syndrome or coronary artery disease. Serial troponins here in the emergency department remained without any trending elevation and he was without any chest pain, exertional dyspnea or other symptoms suggestive of acute coronary syndrome. I offered the patient admission for further cardiac risk stratification however he declined stating that he would prefer to follow up on an outpatient basis. His troponin is very mildly elevated though upon repeat testing shows no concerning trend. His overall constellation of symptoms seems most consistent with obstructive sleep apnea. He is advised to follow up very closely with his primary care physician and will call first thing tomorrow morning to arrange outpatient cardiac stress test. I have also advised to follow-up for referral for sleep testing and I suspect his symptoms are related to FLORENCIO. Prior to discharge follow-up and return precautions were reviewed in detail with the patient who verbalized understanding and agreement with the plan. The patient was discharged in stable condition. Time of Eval: 23:01 Patient Status: Condition improved Re-Evaluation/Progress Note: Pt is informed of his results and diagnosis. The patient understands and agrees with the intended treatment plan. Counseled Regarding: Diagnosis, Lab results, Need for follow-up, When/why to return to ED Discharge & Departure Primary Impression: Sleep apnea Sleep apnea type: unspecified type Qualified Code: G47.30 - Sleep apnea, unspecified Additional Impressions: Shortness of breath Elevated troponin History of DVT (deep vein thrombosis) Anticoagulated on Coumadin Anemia Anemia type: unspecified type Qualified Code: D64.9 - Anemia, unspecified Disposition: Home Discharge Condition All VS Reviewed: Yes Condition: Improved Patient Instructions: Shortness of Breath (ED), Sleep Apnea (GEN) Additional Instructions: Thank you for seeking care at emergency room.. Our primary goal today in the ED was to evaluate you for any life-threatening conditions. Your evaluation was reassuring, however, your troponin was mildly elevated. I recommend that you follow-up with your primary doctor tomorrow to discuss a possible sleep study. You should return to the ED immediately if you develop cough, shortness of breath, chest pain, lightheadedness, weakness or any other concerning signs or symptoms. Thank you for letting us partake in your care today. Referrals: Denver Baker MD (PCP) Scribe Attestation Portions of this note were transcribed by An Leon. I, Dr. Quintanilla personally performed the history, physical exam and medical decision-making; I reviewed and confirmed the accuracy of the information in the transcribed note. copies to: Denver Baker MD, Beck O MD Apr 21, 2017 19:06 AN LEON Apr 21, 2017 20:32
[2017-04-21] MEDS ORDERED: 0.9% Sodium Chloride 1,000 ML IV ONE (19:10)
[2017-04-21 20:16] LABS: BASOPHILS % (AUTO) 0.6 % (0-3); EOSINOPHILS % (AUTO) 3.2 % (0-5); MONOCYTES % (AUTO) 9.3 % (4-12); Mean Corpuscular Hemoglobin 29.3 pg (27.0-35.0); NEUTROPHILS % (AUTO) 59.7 % (40-74); Platelet Count 167 bil/L (150-400)
[2017-04-21 20:38] LABS: TROPONIN T 0.013 ug/L (0.0-0.011)
[2017-04-21 20:49] LABS: INR 3.71 ratio
[2017-04-21 23:14] VITALS: BP 164/77; PULSE 80; RESP 16; O2SAT 94
--- NOTE | 2017-04-22 08:15 | DRSVH ---
PROCEDURE: CT ANGIO CHEST PULMONARY EMBOLISM ([id number]) INDICATIONS: sob TECHNIQUE: After the administration of intravenous contrast, 2 mm thick sections acquired from the pulmonary api michael to the posterior costophrenic angles. 3-dimensional maximum intensity projection (MIP) coronal a nd sagittal reformats were then acquired through the thorax. For radiation dose reduction, the follo wing was used: automated exposure control, adjustment of mA and/or kV according to patient size. COMPARISON: [facility], CR, XR CHEST 1VW (PORTABLE), 01/05/2017, 14:22. FINDINGS: Image quality: Excellent. Pulmonary arteries: Pulmonary arteries are normal in size, and demonstrate no intraluminal filling d efects to suggest central pulmonary embolism. Lungs and pleura: Lungs are clear. No pleural effusions or pneumothorax. Central and peripheral ai rways are patent. Mediastinum: Heart size is normal, without pericardial effusion. No mediastinal or hilar adenopathy . Thoracic aorta is normal in caliber and enhancement. Esophagus is normal in caliber, without hiat al hernia. Bones and chest wall: Humeral head arthroplasty with the humeral head is subluxed anteriorly and the glenoid on the left. No suspicious bony lesions. Ribs and thoracic spine appear intact throughout. Thyroid gland is within normal limits. No axillary or supraclavicular adenopathy. Abdomen: Visualized upper abdominal solid organs appear normal in the early arterial phase of enhanc ement. IMPRESSION: No evidence for pulmonary embolus. No evidence for dissection or aneurysm of the aortic arch are major vessels. Lungs are clear of acute disease. Humeral head replacement in the left shoulder. Head is subluxed anteriorly on axial images. Dictated by: Kody Vo M.D. on 04/22/2017 at 8:09 Approved by: Kody Vo M.D. on 04/22/2017 at 8:13
== END 2017-04-21 23:55 | disposition home or self-care (01) ==
LOC: SED 18:02
DX: G47.30 Sleep apnea, unspecified (principal); D64.9 Anemia, unspecified; R79.89 Other specified abnormal findings of blood chemistry; R06.02 Shortness of breath; E11.40 Type 2 diabetes mellitus with diabetic neuropathy, unspecified; I10 Essential (primary) hypertension; E78.5 Hyperlipidemia, unspecified; Z86.718 Personal history of other venous thrombosis and embolism; Z87.891 Personal history of nicotine dependence; Z79.84 Long term (current) use of oral hypoglycemic drugs; Z79.01 Long term (current) use of anticoagulants
CPT/HCPCS: 36415; 71275; 80053; 83880; 84484; 85025; 85610; 93005; 96360; 99285; J7030; Q9967

== ENCOUNTER 2017-05-16 09:58 | Emergency (ER) | payer OTHER ==
[~2017-05-16] VITALS: Ht 177.8 cm; Wt 102.3 kg
[2017-05-16 09:58] VITALS: BP 122/51; PULSE 79; RESP 18; O2SAT 99
--- NOTE | 2017-05-16 10:02 | ED.REPORT ---
HPI-General Illness Date of Service May 16, 2017 ED Provider: Lionel Elena MD Patient is a 66 year old male with a history of hypertension, diabetes and DVT who presents to the ED via EMS due to an accidental insulin overdose at 0900. [place] [facility] [place] [facility] and staff gave the patient 60 units of Humalog instead of 6. En route to ED, patient's glucose was 192. He reports that he hasn 't eaten today. Patient is asymptomatic at this time. Nursing Notes Stated Complaint: INSULIN OVER MEDICATED Chief Complaint: General Complaint Nursing Notes Reviewed: Yes Allergies: Coded Allergies: No Known Allergies (Verified Allergy, Unknown, 04/21/17) Scheduled Cholecalciferol (Vitamin D3) (Vitamin D3) 1,000 Unit Tab.chew 2,000 UNIT PO QAM Dorzolamide HCl/Timolol Maleat (Dorzolamide-Timolol Eye Drops) 10 Ml Drops 1 GTT RIGHT_EYE BID Doxazosin (Cardura) 4 Mg Tablet 4 MG PO HS Finasteride (Finasteride) 5 Mg Tablet 5 MG PO QAM Gabapentin (Gabapentin) 300 Mg Capsule 900 MG PO TID Glipizide (Glipizide) 5 Mg Tablet 5 MG PO BID Metformin (Metformin) 500 Mg Tablet 500 MG PO BID Morphine Sulfate ER (MS Contin) 30 Mg Tablet.er 30 MG PO BID Omeprazole (Omeprazole) 20 Mg Capsule.dr 20 MG PO QAM Pravastatin (Pravastatin) 20 Mg Tablet 20 MG PO HS Primidone (Primidone) 50 Mg Tablet 100 MG PO HS Propranolol HCl (Propranolol HCl) 40 Mg Tablet 40 MG PO BID Sennosides (Senna) 8.6 Mg Tablet 17.2 MG PO HS Venlafaxine ER (Venlafaxine ER) 75 Mg Cap.er.24h 225 MG PO QAM Scheduled PRN Clotrimazole 1% (Gyne-Lotrimin 7 1%) 45 Gm Cream.appl 1 APPLIC TOPICAL BID PRN PRN fungal infection TO FEET Docusate Sodium (Docusate Sodium) 250 Mg Capsule 250 MG PO BID PRN PRN For Constipation Gabapentin (Gabapentin) 300 Mg Capsule 900 MG PO DAILY PRN PRN For Pain Lidocaine (Rectasmoothe) 5 % Cream..g. 1 APPLIC TP TID PRN PRN For Pain Oxycodone (Roxicodone) 5 Mg Tablet 5 MG PO QID PRN PRN For Pain Zolpidem (Zolpidem) 10 Mg Tablet 10 MG PO HS PRN PRN For Insomnia General Time Seen by MD: 10:01 Chief Complaint Other (insulin overdose) Hx Obtained From: Patient, EMS Arrived By: Ambulance Sudden in Onset?: Yes Onset Occurred: Just prior to arrival Symptom Duration: Since onset Severity: Current: No pain currently Similar Sx Previous: No Past Medical History Past Medical History 1. Lumbar spine problems. 2. Carpal tunnel problems. 3. Diabetes. 4. Obesity. 5. Hypertension. 6. Hyperlipidemia. 7. Neuropathy. 8. Chronic back pain. 9. Hx of osteomyelitis in toes, resolved after bilateral midfoot amputations 10. Depression and anxiety 11. BPH 12. Restless leg syndrome 13. Constipation 14. Insomnia Past Surgical History 1. Lumbar spine surgery. 2. Carpal tunnel surgery. 3. Bilateral midfoot amputations for osteomyelitis Family History Noncontributory Smoking History Former Smoker Social History Lives at [facility] Other Social History: Good social support, Local resident Ambulatory Status Independent Review of Systems +insulin overdose Full Review of Systems Constitutional: Denies: Chills, Fever Respiratory: Denies: Non-productive cough, Shortness of breath GI: Denies: Abdominal pain, Nausea, Vomiting Skin: Denies Itching, Denies Rash Complete sys rev & neg: except as marked. Physical Exam Vital Signs Vital Signs Date Time Temp Pulse Resp B/P Pulse Ox O2 Delivery O2 Flow Rate FiO2 05/16/17 13:44 36.8 79 18 124/52 97 Room Air 05/16/17 13:25 79 18 124/52 97 Room Air 05/16/17 10:45 75 17 129/59 100 05/16/17 09:58 36.8 79 18 122/51 99 Room Air Initial VS: Reviewed General/Constitutional: Awake, Alert, No acute distress Head / Eyes: Atraumatic, Normocephalic, PERRL, EOMI Neck: Atraumatic, Supple Respiratory / Chest: Atraumatic, Breath sounds NL, Breath sounds = bilat, No respiratory distress Cardiovascular: Heart rate NL, Regular rhythm, Heart sounds NL, No gallop, No murmurs, No rubs Abdomen: Atraumatic, Soft, Non-tender Upper Extremities Upper Extremity / MS: Atraumatic, Full range of motion Skin: Atraumatic, Color NL, No rash, Warm, Dry Neurologic: Oriented X3, Speech NL Psychiatric: Affect NL, Mood NL Re-Eval/Medical Decision Med Decision/Clinical Course accidental overdose on Humalog Insulin. Pt able to eat, observed 3.5 hours, no hypoglycemia Time of Eval: 12:44 Re-Evaluation/Progress Note: Glucose is down to 126 Time of Eval: 13:24 Re-Evaluation/Progress Note: Discussed results and plan for discharge. Patient understands and agrees to plan. All questions were addressed. Counseled Regarding: Diagnosis, Lab results, Need for follow-up, When/why to return to ED Discharge & Departure Primary Impression: Accidental overdose Encounter type: initial encounter Qualified Code: T50.901A - Poisoning by unspecified drugs, medicaments and biological substances, accidental ( unintentional), initial encounter Discharge Condition All VS Reviewed: Yes Condition: Stable Additional Instructions: Continue previous home medications. If experiencing symptoms of a low blood sugar check blood sugar. Return emergency Department if blood sugar goes less than 70 today. Referrals: Denver Baker MD (PCP) [facility] Attestation Portions of this note were transcribed by Alison Vargas. I, Dr. Elena personally performed the history, physical exam and medical decision-making; I reviewed and confirmed the accuracy of the information in the transcribed note. Signed by: Minnie Moffett, 05/16/17 copies to: Denver Baker MD, Donald L MD May 16, 2017 10:02 Mai Vargas May 16, 2017 10:10
[2017-05-16 10:45] VITALS: BP 129/59; PULSE 75; RESP 17; O2SAT 100
[2017-05-16 13:25] VITALS: BP 124/52; PULSE 79; RESP 18; O2SAT 97
[2017-05-16 13:44] VITALS: BP 124/52; PULSE 79; RESP 18; O2SAT 97
== END 2017-05-16 13:44 | disposition home or self-care (01) ==
LOC: SED 09:58
DX: T38.3X1A Poisoning by insulin and oral hypoglycemic [antidiabetic] drugs, accidental (unintentional), initial encounter (principal); E11.40 Type 2 diabetes mellitus with diabetic neuropathy, unspecified; I10 Essential (primary) hypertension; E78.5 Hyperlipidemia, unspecified; Z79.84 Long term (current) use of oral hypoglycemic drugs; Z87.891 Personal history of nicotine dependence; Z86.718 Personal history of other venous thrombosis and embolism